=== PATIENT | female | born 1945 | race Caucasian/White ===

== ENCOUNTER 2016-12-20 11:01 | Outpatient (CLI) | payer MEDICARE, OTHER | END 2016-12-20 11:02 | disposition home or self-care (01) | DX: E11.51 Type 2 diabetes mellitus with diabetic peripheral angiopathy without gangrene (principal); I48.0 Paroxysmal atrial fibrillation; I10 Essential (primary) hypertension ==

== ENCOUNTER 2017-01-05 14:46 | Outpatient (CLI) | payer MEDICARE, OTHER | END 2017-01-05 14:47 | disposition home or self-care (01) | DX: R42 Dizziness and giddiness (principal) ==

== ENCOUNTER 2017-01-19 14:56 | Outpatient (CLI) | payer MEDICARE, OTHER | END 2017-01-19 14:57 | disposition home or self-care (01) | DX: E04.1 Nontoxic single thyroid nodule (principal) ==

== ENCOUNTER 2017-06-20 17:00 | Outpatient (CLI) | payer MEDICARE, OTHER | END 2017-06-20 17:01 | disposition home or self-care (01) | LOC: LAB.R 17:00 | PROVIDERS: ATTEND Physician Assistant Medical | DX: Z20.9 Contact with and (suspected) exposure to unspecified communicable disease (principal) | CPT/HCPCS: 87640 ==

== ENCOUNTER 2017-06-23 09:19 | Outpatient (CLI) | payer MEDICARE, OTHER ==
[2017-06-23 13:07] LABS: CALCIUM 9.1 mg/dL (8.5-10.3)
[2017-06-23 13:40] LABS: HEMOGLOBIN A1C 0.92 g/dL
== END 2017-06-23 09:20 | disposition home or self-care (01) ==
LOC: LAB.WCP 09:19
PROVIDERS: ATTEND Physician Assistant Medical
DX: E11.9 Type 2 diabetes mellitus without complications (principal); Z20.9 Contact with and (suspected) exposure to unspecified communicable disease
CPT/HCPCS: 36415; 80048; 83036

== ENCOUNTER 2017-08-03 08:00 | Outpatient (CLI) | payer MEDICARE, OTHER ==
[2017-08-03 19:11] LABS: BASOPHILS % (AUTO) 0.7 %; HGB - HEMOGLOBIN 14.3 g/dL (12.0-16.0); LYMPHOCYTES % (AUTO) 43.3 %; MEAN CORPUSCULAR HGB CONC 32.5 g/dL (32.0-36.0); MEAN PLATELET VOLUME 8.9 fL (7.9-10.8); MONOCYTES # (AUTO) 0.6 10^3/uL (0.0-1.0); MONOCYTES % (AUTO) 12.2 %; NEUTROPHILS % (AUTO) 43.8 %; NUCLEATED RED BLOOD CELLS AUTO 0.1 /100WBC; RED BLOOD COUNT 5.49 10^6/uL (4.20-5.40); RED CELL DISTRIBUTION WIDTH 14.8 % (12.0-15.0); UNCORRECTED WHITE BLOOD COUNT 4.6 x10^3/uL; WHITE BLOOD COUNT 4.6 x10^3/uL (4.8-10.8)
[2017-08-03 19:39] LABS: ALBUMIN/GLOBULIN RATIO 1.5 (1.0-2.2); BILIRUBIN,TOTAL 0.7 mg/dL (0.2-1.0); BUN - BLOOD UREA NITROGEN 18 mg/dL (6-20); CALCIUM 9.1 mg/dL (8.5-10.3); CARBON DIOXIDE - CO2 26 mmol/L (21-32); CHLORIDE 106 mmol/L (101-111); CHOL/HDL RATIO 2.7 (<4.4); CHOLESTEROL 124 mg/dL; CREATININE 0.9 mg/dL (0.4-1.0); GFR - MDRD 62 (>89); GLUCOSE 155 mg/dL (70-100); HDL CHOLESTEROL 46 mg/dL; LDL/HDL RATIO 1.1 (<4.4); POTASSIUM 3.8 mmol/L (3.5-5.0); SODIUM 139 mmol/L (135-145); TOTAL PROTEIN 6.9 g/dL (6.7-8.2); TRIGLYCERIDES 131 mg/dL; VLDL CHOLESTEROL 26 mg/dL
[2017-08-03 19:47] LABS: THYROID STIMULATING HORMONE 0.08 uIU/mL (0.34-5.60)
== END 2017-08-03 08:01 | disposition home or self-care (01) ==
LOC: LAB.WCP 08:00
PROVIDERS: ATTEND Psychiatry & Neurology Psychiatry
DX: F33.1 Major depressive disorder, recurrent, moderate (principal); F43.23 Adjustment disorder with mixed anxiety and depressed mood; G47.00 Insomnia, unspecified
CPT/HCPCS: 36415; 80053; 80061; 84439; 84443; 85025

== ENCOUNTER 2017-09-26 10:20 | Outpatient (CLI) | payer MEDICARE, OTHER ==
[2017-09-26 20:18] LABS: HEMOGLOBIN A1C 0.96 g/dL
== END 2017-09-26 10:21 | disposition home or self-care (01) ==
LOC: LAB.WCP 10:20
PROVIDERS: ATTEND Physician Assistant Medical
DX: E11.9 Type 2 diabetes mellitus without complications (principal); E05.90 Thyrotoxicosis, unspecified without thyrotoxic crisis or storm
CPT/HCPCS: 36415; 83036; 84443

== ENCOUNTER 2017-12-22 08:00 | Outpatient (CLI) | payer MEDICARE, OTHER ==
[2017-12-22 19:07] LABS: BASOPHILS % (AUTO) 0.5 %; HGB - HEMOGLOBIN 14.1 g/dL (12.0-16.0); LYMPHOCYTES # (AUTO) 2.2 10^3/uL (1.5-3.5); LYMPHOCYTES % (AUTO) 39.2 %; MEAN CORPUSCULAR HGB CONC 32.6 g/dL (32.0-36.0); MEAN CORPUSCULAR VOLUME 79.8 fL (81.0-99.0); MEAN PLATELET VOLUME 8.6 fL (7.9-10.8); MONOCYTES # (AUTO) 0.6 10^3/uL (0.0-1.0); MONOCYTES % (AUTO) 10.4 %; NEUTROPHILS # (AUTO) 2.8 10^3/uL (1.5-6.6); NEUTROPHILS % (AUTO) 49.9 %; PLT - PLATELET COUNT 217 10^3/uL (130-450); RED BLOOD COUNT 5.42 10^6/uL (4.20-5.40); RED CELL DISTRIBUTION WIDTH 14.1 % (12.0-15.0); WHITE BLOOD COUNT 5.6 x10^3/uL (4.8-10.8)
[2017-12-22 19:18] LABS: ALBUMIN/GLOBULIN RATIO 1.3 (1.0-2.2); BILIRUBIN,TOTAL 0.5 mg/dL (0.2-1.0); CALCIUM 9.2 mg/dL (8.5-10.3)
[2017-12-22 19:23] LABS: HB2 TOTAL 15.6 g/dL; HEMOGLOBIN A1C 0.9 g/dL; HEMOGLOBIN A1C % 7.4 % (4.6-6.2)
== END 2017-12-22 08:01 | disposition home or self-care (01) ==
LOC: LAB.WCP 08:00
PROVIDERS: ATTEND Physician Assistant Medical
DX: E11.51 Type 2 diabetes mellitus with diabetic peripheral angiopathy without gangrene (principal); R42 Dizziness and giddiness
CPT/HCPCS: 36415; 80053; 83036; 85025

== ENCOUNTER 2018-01-02 10:18 | Outpatient (CLI) | payer MEDICARE, OTHER ==
--- NOTE | 2018-01-04 09:56 | Mammography Report ---
BILATERAL SCREENING MAMMOGRAM: 01/02/2018 COMPARISON: Mammogram 03/01/2016. INDICATION: Screening. TECHNIQUE: Bilateral CC and MLO breast views. FINDINGS: There are scattered fibroglandular densities. No dominant mass, architectural distortion, or concerning cluster of microcalcifications is seen. IMPRESSION: 1. BI-RADS CATEGORY 1. NEGATIVE. 2. RECOMMEND ANNUAL SCREENING MAMMOGRAM. STANDARD QUALIFYING STATEMENTS: 1. This examination was reviewed with the aid of Computer-Aided Detection (CAD) . 2. A negative or benign imaging report should not delay biopsy if clinically suspicious findings are present. Consider surgical consultation if warranted. More than 5 % of cancers are not identified by imaging. 3. Dense breasts may obscure an underlying neoplasm. TD: 01/04/2018 09:56 SOFIA
== END 2018-01-02 10:19 | disposition home or self-care (01) ==
LOC: DI.N 10:18
PROVIDERS: ATTEND Physician Assistant Medical
DX: Z12.31 Encounter for screening mammogram for malignant neoplasm of breast (principal)
CPT/HCPCS: 77067

== ENCOUNTER 2018-04-03 08:00 | Outpatient (CLI) | payer MEDICARE, OTHER ==
[2018-04-03 14:09] LABS: HB2 TOTAL 15.1 g/dL; HEMOGLOBIN A1C 0.77 g/dL; HEMOGLOBIN A1C % 6.8 % (4.6-6.2)
[2018-04-03 14:14] LABS: ALBUMIN 3.7 g/dL (3.2-5.5); ALBUMIN/GLOBULIN RATIO 1.3 (1.0-2.2); ALKALINE PHOSPHATASE 59 IU/L (42-121); ALT ALANINE AMINOTRANSFERASE 21 IU/L (10-60); AST ASPARTATE AMINOTRANSFERASE 19 IU/L (10-42); BILIRUBIN,TOTAL 0.6 mg/dL (0.2-1.0); BUN - BLOOD UREA NITROGEN 14 mg/dL (6-20); CALCIUM 8.9 mg/dL (8.5-10.3); CARBON DIOXIDE - CO2 27 mmol/L (21-32); CHLORIDE 105 mmol/L (101-111); CHOLESTEROL 103 mg/dL; CREATININE 0.8 mg/dL (0.4-1.0); GFR - MDRD 71 (>89); GLUCOSE 149 mg/dL (70-100); HDL CHOLESTEROL 51 mg/dL; LDL CHOLESTEROL,CALCULATED 34 mg/dL; LDL/HDL RATIO 0.7 (<4.4); SODIUM 141 mmol/L (135-145); TOTAL PROTEIN 6.6 g/dL (6.7-8.2); VLDL CHOLESTEROL 18 mg/dL
== END 2018-04-03 08:01 | disposition home or self-care (01) ==
LOC: LAB.WCP 08:00
PROVIDERS: ATTEND Physician Assistant Medical
DX: E11.9 Type 2 diabetes mellitus without complications (principal)
CPT/HCPCS: 36415; 80053; 80061; 83036; 83721

== ENCOUNTER 2018-07-17 09:37 | Outpatient (CLI) | payer MEDICARE, OTHER ==
[2018-07-17 14:30] LABS: CALCIUM 9.4 mg/dL (8.5-10.3); CREATININE 0.5 mg/dL (0.4-1.0)
[2018-07-17 14:40] LABS: HB2 TOTAL 15.9 g/dL; HEMOGLOBIN A1C 0.93 g/dL; HEMOGLOBIN A1C % 7.5 % (4.6-6.2)
== END 2018-07-17 09:38 ==
LOC: LAB.WCP 09:37
PROVIDERS: ATTEND Physician Assistant Medical
DX: E11.51 Type 2 diabetes mellitus with diabetic peripheral angiopathy without gangrene (principal)
CPT/HCPCS: 36415; 80048; 83036

== ENCOUNTER 2018-09-23 23:02 | Emergency (ER) | payer MEDICARE, OTHER ==
[2018-09-24] MEDS ORDERED: DEXAMETHASONE 10 MG/ML VIAL PO STA (01:13)
--- NOTE | 2018-09-24 01:15 | ED Physician Documentation ---
History of Present Illness - Stated complaint Stated Complaint: THROAT PX - Chief complaint Chief Complaint: Heent - History obtained from History obtained from: Patient, Family - History of Present Illness Timing: How many days ago (4) - Additonal information Additional information: 72 y/o female who has had a thyroid biopsy done about 3 weeks ago has developed pain and a sensation of something rubbing when she swallows. She is not short of breath and she does not feel that her airway is compromised. She is able to swallow just has a feeling of something protruding into her throat. 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 She had the biopsy done at [facility] and she has seen Dr. Quiñonez for this problem. She has not been otherwise ill and her diabetes has been under good control. Review of Systems Constitutional: denies: Fever, Chills, Myalgias Eyes: denies: Decreased vision Ears: denies: Ear pain Nose: denies: Rhinorrhea / runny nose, Congestion Throat: reports: Sore throat Cardiac: denies: Chest pain / pressure, Palpitations Respiratory: denies: Dyspnea, Cough GI: denies: Abdominal Pain, Nausea, Vomiting : denies: Dysuria, Frequency PD PAST MEDICAL HISTORY - Past Medical History Past Medical History: No Cardiovascular: Hypertension, High cholesterol, Coronary artery disease, Angina, Atrial fibrillation Respiratory: Sleep apnea, CPAP use Endocrine/Autoimmune: Type 2 diabetes GI: None SUPERVISOR INSTRUMENT MECHANICS: None : None Psych: None Musculoskeletal: Chronic back pain - Past Surgical History Past Surgical History: Yes General: Cholecystectomy /SUPERVISOR INSTRUMENT MECHANICS: Tubal ligation, Hysterectomy, Other - Present Medications Home Medications: Ambulatory Orders Medication Instructions Recorded Confirmed Amlodipine Besylate 10 mg PO DAILY 03/23/13 07/28/16 Aripiprazole [Abilify] 10 mg PO QPM 03/23/13 07/28/16 Aspirin Chewable [St Simon 1 tab DAILY 03/23/13 07/28/16 Aspirin] Carvedilol [Coreg] 25 mg PO BID 03/23/13 07/28/16 Citalopram Hydrobromide [Celexa] 60 mg PO DAILY 03/23/13 07/28/16 Esomeprazole Magnesium [Nexium] 40 mg PO DAILY 03/23/13 07/28/16 Furosemide [Lasix] 40 mg PO DAILY 03/23/13 07/28/16 Isosorbide Mononitrate [Imdur] 60 mg PO DAILY 03/23/13 07/28/16 Losartan [Cozaar] 50 mg PO BID 03/23/13 07/28/16 Metformin HCl [Glucophage Xr] 500 mg PO BID 03/23/13 07/28/16 Nitroglycerin [Nitrostat] 0.4 mg SL PRN 03/23/13 04/02/14 Simvastatin [Zocor] 40 mg PO QPM 03/23/13 07/28/16 Dextran/Hypromellose/Glycerin 1 drop EACHEYE DAILY 07/27/16 07/28/16 [Genteal Tears 0.1%-0.2%-0.3%] Melatonin/Herbal Complex #184 3 mg PO DAILY 07/27/16 07/27/16 [Melatonin + l-Theanine Softgel] Empagliflozin [Jardiance] 09/23/18 Lisdexamfetamine Dimesylate 40 mg PO 09/23/18 [Vyvanse] Omeprazole 20 mg PO 09/23/18 - Allergies Allergies/Adverse Reactions: Allergies Allergy/AdvReac Type Severity Reaction Status Date / Time captopril [From Capoten] Allergy Severe Edema Verified 09/23/18 23:08 pentazocine HCl * Allergy Severe Hallucinati Verified 09/23/18 23:08 [From Talwin Compound] ons iodine Allergy Rash Verified 09/23/18 23:08 Sulfa (Sulfonamide Allergy Unknown Verified 09/23/18 23:08 Antibiotics) ibuprofen AdvReac Intermediate Emesis Verified 09/23/18 23:08 - Social History Does the pt smoke?: No Smoking Status: Never smoker Does the pt drink ETOH?: No Does the pt have substance abuse?: No - Immunizations Immunizations are current?: Yes - POLST Patient has POLST: No PD ED PE NORMAL - Vitals Vital signs reviewed: Yes (hypertensive ) - General General: Alert and oriented X 3, No acute distress, Well developed/nourished - HEENT HEENT: Atraumatic, PERRL, EOMI, Ears normal, Moist mucous membranes, Pharynx benign, Dentition benign - Neck Neck: Supple, no meningeal sign, No bony TTP, Other (I am not able to palpate a thyroid mass. The mass is readily visible on bedside ultrasound and appears as a hypervascular follicular mass about 2.6cm round. ) - Cardiac Cardiac: RRR, No murmur - Respiratory Respiratory: No respiratory distress, Clear bilaterally - Derm Derm: Normal color, Warm and dry, No rash - Extremities Extremities: No deformity, No edema - Neuro Neuro: Alert and oriented X 3, hydrometeorological technician 2-12 intact, No motor deficit, No sensory deficit, Normal speech Eye Opening: Spontaneous Motor: Obeys Commands Verbal: Oriented GCS Score: 15 - Psych Psych: Normal mood, Normal affect Results - Vitals Vitals: Vital Signs - 24 hr 09/23/18 09/24/18 23:03 01:33 Temperature 36.4 C L Heart Rate 79 67 Respiratory 18 18 Rate Blood Pressure 156/61 H 142/61 H O2 Saturation 97 95 Oxygen O2 Source Room air PD MEDICAL DECISION MAKING - ED course Complexity details: reviewed results, re-evaluated patient, considered differential, d/w patient, d/w family ED course: This 72-year-old female with a history of a thyroid mass has symptoms associated with this mass and I am unable to palpate the mass directly. It is readily seen on bedside ultrasound. It does not appear to be larger than the images we have from 2017 here at [facility]. I have asked the patient to follow-up with her ENT Dr. Quiñonez for more help with this specific problem. Today we have given her a dose of dexamethasone for symptomatic relief. I did discuss with the patient that this may interfere with her diabetes. Departure - Departure Disposition: 01 Home, Self Care Clinical Impression: Thyroid mass Condition: Stable Instructions: Thyroid Probs Tx, Thyroid Common Probs Follow-Up: Kym Figueroa PA-C [Primary Care Provider] - Mark Quiñonez MD [Physician No Access] - Discharge Date/Time: 09/24/18 01:33
[2018-09-24 01:33] VITALS: BP 142/61
== END 2018-09-24 01:33 | disposition home or self-care (01) ==
LOC: ED 23:02
DX: R22.9 Localized swelling, mass and lump, unspecified (principal); E07.9 Disorder of thyroid, unspecified; I10 Essential (primary) hypertension; E78.00 Pure hypercholesterolemia, unspecified; I25.10 Atherosclerotic heart disease of native coronary artery without angina pectoris; E11.9 Type 2 diabetes mellitus without complications; Z79.84 Long term (current) use of oral hypoglycemic drugs; Z79.82 Long term (current) use of aspirin
CPT/HCPCS: 99283

== ENCOUNTER 2018-10-19 08:00 | Outpatient (CLI) | payer MEDICARE, OTHER ==
[2018-10-19 19:25] LABS: BASOPHILS % (AUTO) 0.8 %; HGB - HEMOGLOBIN 14.4 g/dL (12.0-16.0); LYMPHOCYTES % (AUTO) 38.3 %; MEAN CORPUSCULAR HEMOGLOBIN 26.3 pg (27.0-31.0); MEAN CORPUSCULAR HGB CONC 32.2 g/dL (32.0-36.0); MEAN CORPUSCULAR VOLUME 81.6 fL (81.0-99.0); MEAN PLATELET VOLUME 8.8 fL (7.9-10.8); MONOCYTES # (AUTO) 0.6 10^3/uL (0.0-1.0); MONOCYTES % (AUTO) 11.1 %; NEUTROPHILS # (AUTO) 2.5 10^3/uL (1.5-6.6); NEUTROPHILS % (AUTO) 49.8 %; PLT - PLATELET COUNT 216 10^3/uL (130-450); RED BLOOD COUNT 5.48 10^6/uL (4.20-5.40); RED CELL DISTRIBUTION WIDTH 14.7 % (12.0-15.0); WHITE BLOOD COUNT 5.1 x10^3/uL (4.8-10.8)
[2018-10-19 19:31] LABS: HB2 TOTAL 15.3 g/dL; HEMOGLOBIN A1C 0.86 g/dL; HEMOGLOBIN A1C % 7.3 % (4.6-6.2)
[2018-10-19 19:34] LABS: ALBUMIN 3.8 g/dL (3.2-5.5); ALBUMIN/GLOBULIN RATIO 1.5 (1.0-2.2); ALKALINE PHOSPHATASE 66 IU/L (42-121); ALT ALANINE AMINOTRANSFERASE 19 IU/L (10-60); AST ASPARTATE AMINOTRANSFERASE 18 IU/L (10-42); BILIRUBIN,TOTAL 0.6 mg/dL (0.2-1.0); BUN - BLOOD UREA NITROGEN 18 mg/dL (6-20); CARBON DIOXIDE - CO2 27 mmol/L (21-32); CHLORIDE 107 mmol/L (101-111); CHOL/HDL RATIO 2.4 (<4.4); CHOLESTEROL 149 mg/dL; CREATININE 0.9 mg/dL (0.4-1.0); GFR - MDRD 62 (>89); GLUCOSE 154 mg/dL (70-100); HDL CHOLESTEROL 61 mg/dL; LDL CHOLESTEROL,CALCULATED 61 mg/dL; SODIUM 139 mmol/L (135-145); TOTAL PROTEIN 6.4 g/dL (6.7-8.2); VLDL CHOLESTEROL 27 mg/dL
== END 2018-10-19 23:59 | disposition home or self-care (01) ==
LOC: LAB.WCP 08:00
PROVIDERS: ATTEND Physician Assistant Medical
DX: E11.9 Type 2 diabetes mellitus without complications (principal); E05.90 Thyrotoxicosis, unspecified without thyrotoxic crisis or storm; K21.9 Gastro-esophageal reflux disease without esophagitis
CPT/HCPCS: 36415; 80053; 80061; 83036; 83721; 84443; 85025

== ENCOUNTER 2019-01-18 07:24 | Outpatient (CLI) | payer MEDICARE, OTHER ==
[2019-01-18 14:02] LABS: CALCIUM 9.1 mg/dL (8.5-10.3); CREATININE 0.9 mg/dL (0.4-1.0)
[2019-01-18 14:29] LABS: HB2 TOTAL 15.4 g/dL; HEMOGLOBIN A1C 0.92 g/dL; HEMOGLOBIN A1C % 7.6 % (4.6-6.2)
== END 2019-01-18 07:25 | disposition home or self-care (01) ==
LOC: LAB.WCP 07:24
PROVIDERS: ATTEND Physician Assistant Medical
DX: E11.51 Type 2 diabetes mellitus with diabetic peripheral angiopathy without gangrene (principal); E04.1 Nontoxic single thyroid nodule
CPT/HCPCS: 36415; 80048; 83036; 84443

== ENCOUNTER 2019-02-27 16:36 | Outpatient (CLI) | payer MEDICARE, OTHER ==
--- NOTE | 2019-02-28 09:21 | Mammography Report ---
Reason: SCREENING MAMMO Procedure Date: 02/27/2019 Accession Number: [id number] / [id number] Procedure: ARTURO - Screening Mammo w/Candido CPT Code: FULL RESULT: EXAM: Screening Mammo w/Candido DATE: 02/27/2019 5:12 PM CLINICAL HISTORY: Screening encounter. Personal history of breast cancer on the left side status post lumpectomy and radiation therapy in 1991. TECHNIQUE: (B) - Bilateral CC and MLO views were obtained. COMPARISON: 01/02/2018 through 11/09/2014. PARENCHYMAL PATTERN: (F) - The breast(s) demonstrate(s) diffuse fatty replacement. FINDINGS: Posttreatment changes in the left breast are stable. There are coarse typically benign calcifications. There are no suspicious masses, calcifications, or areas of distortion. IMPRESSION: Benign findings. BI-RADS category 2. RECOMMENDATION: (ANNUAL) - Recommend routine annual screening mammography. BI-RADS CATEGORY: (2) - Benign Findings. STANDARD QUALIFYING STATEMENTS: 1. This examination was not reviewed with the aid of Computer-Aided Detection (CAD). 2. A negative or benign imaging report should not preclude biopsy if clinically suspicious findings are present. 3. Dense breasts may obscure an underlying neoplasm. 4. This examination was reviewed with the aid of 3D breast imaging (tomosynthesis).
== END 2019-02-27 16:37 | disposition home or self-care (01) ==
LOC: DI 16:36
DX: Z12.31 Encounter for screening mammogram for malignant neoplasm of breast (principal); Z80.3 Family history of malignant neoplasm of breast
CPT/HCPCS: 77063; 77067

== ENCOUNTER 2019-04-20 07:54 | Outpatient (CLI) | payer MEDICARE, OTHER ==
[2019-04-20 13:13] LABS: BUN - BLOOD UREA NITROGEN 20 mg/dL (6-20); CALCIUM 9.4 mg/dL (8.5-10.3); CARBON DIOXIDE - CO2 27 mmol/L (21-32); CHLORIDE 107 mmol/L (101-111); CHOL/HDL RATIO 2.8 (<4.4); CHOLESTEROL 131 mg/dL; CREATININE 1.1 mg/dL (0.4-1.0); GFR - MDRD 49 (>89); GLUCOSE 179 mg/dL (70-100); HDL CHOLESTEROL 46 mg/dL; LDL CHOLESTEROL,CALCULATED 66 mg/dL; LDL/HDL RATIO 1.4 (<4.4); SODIUM 143 mmol/L (135-145); VLDL CHOLESTEROL 19 mg/dL
[2019-04-20 13:20] LABS: HB2 TOTAL 14.9 g/dL; HEMOGLOBIN A1C 0.88 g/dL; HEMOGLOBIN A1C % 7.6 % (4.6-6.2)
== END 2019-04-20 07:55 | disposition home or self-care (01) ==
LOC: LAB.WCP 07:54
PROVIDERS: ATTEND Physician Assistant Medical
DX: E11.51 Type 2 diabetes mellitus with diabetic peripheral angiopathy without gangrene (principal)
CPT/HCPCS: 36415; 80048; 80061; 83036; 83721

== ENCOUNTER 2019-07-09 10:30 | Outpatient (CLI) | payer MEDICARE, OTHER ==
[2019-07-09 20:21] LABS: CANDIDA GROUP DNA NEGATIVE (NEGATIVE); CANDIDA KRUSEI DNA NEGATIVE (NEGATIVE); TRICHOMONAS VAGINALIS DNA NEGATIVE (NEGATIVE)
== END 2019-07-09 23:59 ==
LOC: LAB.R 10:30
PROVIDERS: ATTEND Physician Assistant
DX: B37.3 Candidiasis of vulva and vagina (principal)
CPT/HCPCS: 87661; 87801

== ENCOUNTER 2019-08-10 14:03 | Outpatient (CLI) | payer MEDICARE, OTHER ==
[2019-08-10 19:03] LABS: CALCIUM 9.1 mg/dL (8.5-10.3)
[2019-08-10 19:05] LABS: HB2 TOTAL 14.6 g/dL; HEMOGLOBIN A1C 0.87 g/dL; HEMOGLOBIN A1C % 7.6 % (4.6-6.2)
== END 2019-08-10 23:59 | disposition home or self-care (01) ==
LOC: LAB.WCP 14:03
PROVIDERS: ATTEND Physician Assistant Medical
DX: E11.59 Type 2 diabetes mellitus with other circulatory complications (principal)
CPT/HCPCS: 36415; 80048; 83036

== ENCOUNTER 2019-08-13 08:00 | Outpatient (CLI) | payer MEDICARE, OTHER | END 2019-08-13 23:59 | disposition home or self-care (01) | LOC: LAB.R 08:00 | PROVIDERS: ATTEND Physician Assistant Medical | DX: E11.9 Type 2 diabetes mellitus without complications (principal); Z79.899 Other long term (current) drug therapy | CPT/HCPCS: 81002; 87086 ==

== ENCOUNTER 2019-10-24 10:32 | Emergency (ER) | payer MEDICARE, OTHER ==
[2019-10-24 10:47] VITALS: BP 150/59
--- NOTE | 2019-10-24 11:37 | ED Physician Documentation ---
PD HPI URI - Stated complaint Stated Complaint: cold sx - Chief complaint Chief Complaint: Heent - History obtained from History obtained from: Patient - History of Present Illness Timing - onset: How many days ago (3-4) Timing duration: Days (3-4) Timing details: Abrupt onset, Still present Associated symptoms: Chills, Nasal congestion, Dry cough, Dyspnea. No: Chest pain, NVD, Bilateral edema Contributing factors: No: Sick contact, Immunocompromised, COPD / asthma Similar symptoms before: Has not had sx before Review of Systems Constitutional: reports: Chills, Myalgias Nose: reports: Congestion Throat: denies: Sore throat Cardiac: denies: Chest pain / pressure Respiratory: reports: Dyspnea, Cough. denies: Wheezing GI: reports: Nausea. denies: Vomiting, Diarrhea Musculoskeletal: denies: Neck pain Neurologic: denies: Altered mental status, Headache PD PAST MEDICAL HISTORY - Past Medical History Cardiovascular: Hypertension, High cholesterol, Coronary artery disease, Angina, Atrial fibrillation Respiratory: Sleep apnea, CPAP use Endocrine/Autoimmune: Type 2 diabetes GI: None FASHION PATTERNMAKER: None : None Psych: None Musculoskeletal: Chronic back pain - Past Surgical History Past Surgical History: Yes General: Cholecystectomy /FASHION PATTERNMAKER: Tubal ligation, Hysterectomy, Other - Present Medications Home Medications: Ambulatory Orders Medication Instructions Recorded Confirmed Amlodipine Besylate 10 mg PO DAILY 03/23/13 07/28/16 Aripiprazole [Abilify] 10 mg PO QPM 03/23/13 07/28/16 Aspirin Chewable [St Simon 1 tab DAILY 03/23/13 07/28/16 Aspirin] Carvedilol [Coreg] 25 mg PO BID 03/23/13 07/28/16 Citalopram Hydrobromide [Celexa] 60 mg PO DAILY 03/23/13 07/28/16 Esomeprazole Magnesium [Nexium] 40 mg PO DAILY 03/23/13 07/28/16 Furosemide [Lasix] 40 mg PO DAILY 03/23/13 07/28/16 Isosorbide Mononitrate [Imdur] 60 mg PO DAILY 03/23/13 07/28/16 Losartan [Cozaar] 50 mg PO BID 03/23/13 07/28/16 Metformin HCl [Glucophage Xr] 500 mg PO BID 03/23/13 07/28/16 Nitroglycerin [Nitrostat] 0.4 mg SL PRN 03/23/13 04/02/14 Simvastatin [Zocor] 40 mg PO QPM 03/23/13 07/28/16 Dextran/Hypromellose/Glycerin 1 drop EACHEYE DAILY 07/27/16 07/28/16 [Genteal Tears 0.1%-0.2%-0.3%] Melatonin/Herbal Comb. No.184 3 mg PO DAILY 07/27/16 07/27/16 [Melatonin + l-Theanine Softgel] Empagliflozin [Jardiance] 09/23/18 Lisdexamfetamine Dimesylate 40 mg PO 09/23/18 [Vyvanse] Omeprazole 20 mg PO 09/23/18 dexAMETHasone [Decadron] 4 mg PO DAILY #5 tablet 10/24/19 - Allergies Allergies/Adverse Reactions: Allergies Allergy/AdvReac Type Severity Reaction Status Date / Time captopril [From Capoten] Allergy Severe Edema Verified 10/24/19 10:45 pentazocine HCl * Allergy Severe Hallucinati Verified 10/24/19 10:45 [From Talwin Compound] ons adhesive tape Allergy Unknown Verified 10/24/19 10:45 iodine Allergy Rash Verified 10/24/19 10:45 Sulfa (Sulfonamide Allergy Unknown Verified 10/24/19 10:45 Antibiotics) sulfamethoxazole Allergy Unknown Verified 10/24/19 10:45 [From Septra] trimethoprim [From Septra] Allergy Unknown Verified 10/24/19 10:45 ibuprofen AdvReac Intermediate Emesis Verified 10/24/19 10:45 - Social History Does the pt smoke?: No Smoking Status: Never smoker Does the pt drink ETOH?: No Does the pt have substance abuse?: No - Immunizations Immunizations are current?: Yes - POLST Patient has POLST: No PD ED PE NORMAL - Vitals Vital signs reviewed: Yes - General General: Alert and oriented X 3, No acute distress, Well developed/nourished - HEENT HEENT: Moist mucous membranes, Pharynx benign - Neck Neck: Supple, no meningeal sign, No adenopathy - Cardiac Cardiac: RRR, No murmur - Respiratory Respiratory: Clear bilaterally - Abdomen Abdomen: Soft, Non tender - Derm Derm: Normal color, Warm and dry - Extremities Extremities: No edema, No calf tenderness / cord - Neuro Neuro: Alert and oriented X 3, No motor deficit, Normal speech Results - Vitals Vitals: Vital Signs - 24 hr 10/24/19 10:45 Temperature 36.9 C Heart Rate 69 Respiratory 15 Rate Blood Pressure 150/59 H O2 Saturation 98 Oxygen O2 Source Room air - Rads (name of study) chest xray Radiology: Prelim report reviewed (no infiltrates), See rad report PD MEDICAL DECISION MAKING - ED course Complexity details: considered differential (chest is clear, sats good. ), d/w patient Departure - Departure Disposition: Home, Self Care Clinical Impression: Upper respiratory infection Qualifiers: URI type: unspecified URI Qualified Code(s): J06.9 - Acute upper respiratory infection, unspecified Condition: Stable Record reviewed to determine appropriate education?: Yes Instructions: ED Upper Resp Infec No Abx Tx Follow-Up: Kym Figueroa PA-C [Primary Care Provider] - Prescriptions: dexAMETHasone [Decadron] 4 mg PO DAILY #5 tablet Comments: No signs of pneumonia at this time. Use Decadron to help with inflammation of airways. Expect some cough to develop most likely. Discharge Date/Time: 10/24/19 12:30
[2019-10-24] MEDS ORDERED: DEXAMETHASONE 10 MG/ML VIAL PO STA (11:54)
[2019-10-24] MEDS ORDERED: CHERRY SYRUP 10 ML UDC PO ONE (11:54)
--- NOTE | 2019-10-24 11:54 | XRAY Report ---
Reason: cough Procedure Date: 10/24/2019 Accession Number: [id number] / [id number] Procedure: XR - Chest 2 View X-Ray CPT Code: 15338 Final Report FULL RESULT: EXAM: CHEST RADIOGRAPHY EXAM DATE: 10/24/2019 11:33 AM. CLINICAL HISTORY: Cough. COMPARISON: XR CHEST PA AND LAT 11/02/2012 9:37 PM. TECHNIQUE: 2 views. FINDINGS: Lungs/Pleura: No focal opacities evident. No pleural effusion. No pneumothorax. Normal volumes. Mediastinum: Stable cardiomediastinal silhouette. Other: Surgical clips in the left axilla. IMPRESSION: No evidence for acute cardiothoracic process. RADIA
== END 2019-10-24 12:30 | disposition home or self-care (01) ==
LOC: ED 10:32
DX: J06.9 Acute upper respiratory infection, unspecified (principal); I10 Essential (primary) hypertension; E11.9 Type 2 diabetes mellitus without complications; Z79.84 Long term (current) use of oral hypoglycemic drugs; Z79.82 Long term (current) use of aspirin
CPT/HCPCS: 71046; 99283; A9270

== ENCOUNTER 2019-11-08 08:00 | Outpatient (CLI) | payer MEDICARE, OTHER ==
[2019-11-08 12:37] LABS: HB2 TOTAL 13.6 g/dL; HEMOGLOBIN A1C 0.86 g/dL; HEMOGLOBIN A1C % 7.9 % (4.6-6.2)
[2019-11-08 12:45] LABS: ALBUMIN 3.5 g/dL (3.2-5.5); ALBUMIN/GLOBULIN RATIO 1.2 (1.0-2.2); ALKALINE PHOSPHATASE 59 IU/L (42-121); ALT ALANINE AMINOTRANSFERASE 22 IU/L (10-60); AST ASPARTATE AMINOTRANSFERASE 17 IU/L (10-42); BILIRUBIN,TOTAL 0.5 mg/dL (0.2-1.0); BUN - BLOOD UREA NITROGEN 16 mg/dL (6-20); CALCIUM 8.7 mg/dL (8.5-10.3); CARBON DIOXIDE - CO2 25 mmol/L (21-32); CHLORIDE 109 mmol/L (101-111); CHOL/HDL RATIO 2.5 (<4.4); CHOLESTEROL 117 mg/dL; CREATININE 0.9 mg/dL (0.4-1.0); GFR - MDRD 61 (>89); GLUCOSE 202 mg/dL (70-100); HDL CHOLESTEROL 46 mg/dL; LDL CHOLESTEROL,CALCULATED 52 mg/dL; LDL/HDL RATIO 1.1 (<4.4); SODIUM 141 mmol/L (135-145); TOTAL PROTEIN 6.4 g/dL (6.7-8.2); VLDL CHOLESTEROL 19 mg/dL
== END 2019-11-08 23:59 | disposition home or self-care (01) ==
LOC: LAB.WCP 08:00
PROVIDERS: ATTEND Physician Assistant Medical
DX: E11.9 Type 2 diabetes mellitus without complications (principal)
CPT/HCPCS: 36415; 80053; 80061; 83036; 83721

== ENCOUNTER 2019-11-23 09:47 | Outpatient (CLI) | payer MEDICARE, OTHER ==
[2019-11-23 12:53] LABS: HB2 TOTAL 13.5 g/dL; HEMOGLOBIN A1C 0.96 g/dL; HEMOGLOBIN A1C % 8.7 % (4.6-6.2)
[2019-11-23 12:58] LABS: ALBUMIN 3.5 g/dL (3.2-5.5); ALBUMIN/GLOBULIN RATIO 1.3 (1.0-2.2); ALKALINE PHOSPHATASE 64 IU/L (42-121); ALT ALANINE AMINOTRANSFERASE 24 IU/L (10-60); AST ASPARTATE AMINOTRANSFERASE 19 IU/L (10-42); BILIRUBIN,TOTAL 0.6 mg/dL (0.2-1.0); BUN - BLOOD UREA NITROGEN 14 mg/dL (6-20); CALCIUM 8.8 mg/dL (8.5-10.3); CARBON DIOXIDE - CO2 26 mmol/L (21-32); CHLORIDE 99 mmol/L (101-111); CHOL/HDL RATIO 3.1 (<4.4); CHOLESTEROL 129 mg/dL; CREATININE 0.9 mg/dL (0.4-1.0); GFR - MDRD 61 (>89); GLUCOSE 200 mg/dL (70-100); HDL CHOLESTEROL 41 mg/dL; LDL CHOLESTEROL,CALCULATED 48 mg/dL; LDL/HDL RATIO 1.2 (<4.4); SODIUM 136 mmol/L (135-145); TOTAL PROTEIN 6.3 g/dL (6.7-8.2); VLDL CHOLESTEROL 40 mg/dL
== END 2019-11-23 23:59 | disposition home or self-care (01) ==
LOC: LAB.WCP 09:47
PROVIDERS: ATTEND Physician Assistant Medical
DX: E11.9 Type 2 diabetes mellitus without complications (principal)
CPT/HCPCS: 36415; 80053; 80061; 83036; 83721

== ENCOUNTER 2019-12-06 10:37 | Outpatient (CLI) | payer MEDICARE, OTHER ==
[2019-12-06 18:43] LABS: BASOPHILS % (AUTO) 0.5 %; EOSINOPHILS # (AUTO) 0.1 10^3/uL (0.0-0.7); EOSINOPHILS % (AUTO) 1.6 %; HGB - HEMOGLOBIN 13.9 g/dL (12.0-16.0); LYMPHOCYTES # (AUTO) 1.7 10^3/uL (1.5-3.5); LYMPHOCYTES % (AUTO) 30.8 %; MEAN CORPUSCULAR HEMOGLOBIN 26.7 pg (27.0-31.0); MEAN CORPUSCULAR HGB CONC 31.7 g/dL (32.0-36.0); MEAN CORPUSCULAR VOLUME 84.1 fL (81.0-99.0); MONOCYTES # (AUTO) 0.6 10^3/uL (0.0-1.0); MONOCYTES % (AUTO) 11.3 %; NEUTROPHILS # (AUTO) 3.1 10^3/uL (1.5-6.6); NEUTROPHILS % (AUTO) 55.4 %; PLT - PLATELET COUNT 211 10^3/uL (130-450); RED BLOOD COUNT 5.21 10^6/uL (4.20-5.40); RED CELL DISTRIBUTION WIDTH 13.3 % (12.0-15.0); WHITE BLOOD COUNT 5.6 x10^3/uL (4.8-10.8)
== END 2019-12-06 23:59 | disposition home or self-care (01) ==
LOC: LAB.WCP 10:37
PROVIDERS: ATTEND Physician Assistant Medical
DX: I10 Essential (primary) hypertension (principal); R41.3 Other amnesia
CPT/HCPCS: 36415; 82607; 85025

== ENCOUNTER 2019-12-31 06:40 | Outpatient (CLI) | payer MEDICARE, OTHER ==
[2019-12-31 07:35] LABS: CALCIUM 9.1 mg/dL (8.5-10.3); CREATININE 0.9 mg/dL (0.4-1.0)
[2019-12-31] MEDS ORDERED: GADOBUTROL 15 MMOL/15 ML VIAL ONE (08:21)
[2019-12-31] MEDS ORDERED: GADOBUTROL 15 MMOL/15 ML VIAL IVP ONE (08:43)
--- NOTE | 2019-12-31 10:29 | MRI Report ---
Reason: MEMORY LOSS Procedure Date: 12/31/2019 Accession Number: [id number] / [id number] Procedure: MRI - Brain W/WO CPT Code: Final Report FULL RESULT: EXAM: MRI BRAIN WITHOUT AND WITH CONTRAST EXAM DATE: 12/31/2019 08:45 AM. CLINICAL HISTORY: Memory loss that has increased over the last 6 months. History of breast cancer COMPARISON: BRAIN 09/26/2007 9:56 AM. TECHNIQUE: Multiplanar, multisequence T1-weighted and fluid-sensitive MR sequences of the brain were performed before and after administration of intravenous contrast. Sequences optimized for routine evaluation. Other: None. IV Contrast: 11 cc Gadavist. FINDINGS: No abnormal restricted diffusion signal or abnormal magnetic susceptibility is present in the brain parenchyma. No cerebellar tonsillar ectopia is present. Age appropriate prominence of the ventricles and sulci is noted. No extra-axial fluid collections are present. There are a few punctate FLAIR hyperintensities in the cerebral hemisphere white matter which are stable and nonspecific. Commonly, these are seen secondary to small vessel ischemic change. There is an expected flow void in the major intracranial vessels in the skull base. No mass is present in either orbit or in either Meckel's cave. Expected enhancement is seen in the major dural venous sinuses. No enhancing mass is present in the brain parenchyma. Projecting inferior and medial to the cavernous ICA on the right is a 3-4 mm fullness of the flow void, image 8 series 601. Scattered paranasal sinus mucosal thickening is present. IMPRESSION: 1. FLAIR hyperintensities are seen in the cerebral hemisphere white matter bilaterally are stable. These are nonspecific and are commonly seen secondary to small vessel ischemic change. 2. No intracranial mass. No intracranial metastatic disease is identified 3. Ventricles are normal in size and configuration. 4. 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 MRA would be of value. RADIA
== END 2019-12-31 06:41 | disposition home or self-care (01) ==
LOC: DI 06:40
PROVIDERS: ATTEND Physician Assistant Medical
DX: R41.3 Other amnesia (principal); I10 Essential (primary) hypertension
CPT/HCPCS: 36415; 70553; 80048; A9585

== ENCOUNTER 2020-01-12 16:41 | Outpatient (CLI) | payer MEDICARE, OTHER ==
--- NOTE | 2020-01-12 18:25 | MRI Report ---
Reason: MEMORY LOSS, ABN MRI Procedure Date: 01/12/2020 Accession Number: [id number] / [id number] Procedure: MRI - Angio Brain W/O (MRA) CPT Code: Final Report FULL RESULT: EXAM MRA BRAIN EXAM DATE: 01/12/2020 05:27 PM. CLINICAL HISTORY: 74-year-old female. Possible aneurysm seen in the cavernous ICA on the right MEMORY LOSS, ABN MRI. COMPARISON: BRAIN W/WO 12/31/2019 7:33 AM. TECHNIQUE: Multiplanar, multisequence MRA sequences of the brain were performed. Other: None. Post-processing: Multiplanar 3D MIP reconstructions. IV Contrast: None. FINDINGS: RIGHT Internal Carotid (ICA): No aneurysm, stenosis or anomaly. Middle Cerebral (MCA): No aneurysm, stenosis or anomaly. Anterior Cerebral (MELISSA): No aneurysm, stenosis or anomaly. Posterior Cerebral (SENIOR QUALITY ASSURANCE ANALYST): No aneurysm, stenosis or anomaly. Posterior Communicating (P-COM): Not visualized, aplastic versus markedly hypoplastic Vertebral: No aneurysm, stenosis or anomaly in the visualized upper vertebral artery. LEFT Internal Carotid (ICA): No aneurysm, stenosis or anomaly. Middle Cerebral (MCA): No aneurysm, stenosis or anomaly. Anterior Cerebral (MELISSA): No aneurysm, stenosis or anomaly. Posterior Cerebral (SENIOR QUALITY ASSURANCE ANALYST): No aneurysm, stenosis or anomaly. Posterior Communicating (P-COM): No aneurysm, stenosis or anomaly. Vertebral: No aneurysm, stenosis or anomaly in the visualized upper vertebral artery. MIDLINE Anterior Communicating (A-COM): No aneurysm, stenosis or anomaly. Basilar Artery:No aneurysm, stenosis or anomaly. Other: None. IMPRESSION: 1. Unremarkable brain MRA. No stenoses or aneurysms. RADIA
== END 2020-01-12 16:42 | disposition home or self-care (01) ==
LOC: DI 16:41
PROVIDERS: ATTEND Physician Assistant Medical
DX: R41.3 Other amnesia (principal)
CPT/HCPCS: 70544

== ENCOUNTER 2020-01-26 14:54 | Outpatient (CLI) | payer MEDICARE, OTHER | END 2020-01-26 14:55 | disposition critical access hospital (66) | LOC: EMS 14:54 | PROVIDERS: ATTEND Surgery | DX: R05 Cough (principal); R50.9 Fever, unspecified; R11.10 Vomiting, unspecified; R41.0 Disorientation, unspecified | CPT/HCPCS: A0425; A0427 ==

== ENCOUNTER 2020-01-31 14:22 | Emergency (ER) | payer MEDICARE, OTHER ==
--- NOTE | 2020-01-31 15:39 | XRAY Report ---
Reason: chest pain Procedure Date: 01/31/2020 Accession Number: [id number] / [id number] Procedure: XR - Chest 1 View X-Ray CPT Code: 67086 Final Report FULL RESULT: EXAM: CHEST RADIOGRAPHY EXAM DATE: 01/31/2020 03:16 PM. CLINICAL HISTORY: Chest pain. Cough and shortness of breath x2 weeks. COMPARISON: CHEST 1 VIEW 01/26/2020 3:34 PM CHEST 2 VIEW 10/24/2019 11:27 AM. TECHNIQUE: 1 view. FINDINGS: Lungs/Pleura: The right hemidiaphragm is mildly elevated. Improved aeration of the right base with persistent patchy opacity in the medial base. New hazy opacity overlying the peripheral left hemithorax. No pleural effusion or pneumothorax. Mediastinum: Within exam limitations, the cardiomediastinal contour is normal. Atherosclerotic calcifications within the aortic arch. Other: Surgical clips in the left axilla. IMPRESSION: 1. Improving consolidation in the right base. 2. New hazy opacity overlying the peripheral left hemithorax, suspicious for new site of infection. This appearance could be seen with atypical/viral infection. RADIA
[2020-01-31 15:54] LABS: BASOPHILS % (AUTO) 0.4 %; HGB - HEMOGLOBIN 12.1 g/dL (12.0-16.0); LYMPHOCYTES # (AUTO) 1.8 10^3/uL (1.5-3.5); LYMPHOCYTES % (AUTO) 19.6 %; MEAN CORPUSCULAR HEMOGLOBIN 26.1 pg (27.0-31.0); MEAN CORPUSCULAR HGB CONC 32.6 g/dL (32.0-36.0); MEAN CORPUSCULAR VOLUME 80.1 fL (81.0-99.0); MEAN PLATELET VOLUME 9.8 fL (7.9-10.8); MONOCYTES # (AUTO) 1.2 10^3/uL (0.0-1.0); MONOCYTES % (AUTO) 12.9 %; NEUTROPHILS # (AUTO) 5.8 10^3/uL (1.5-6.6); NEUTROPHILS % (AUTO) 65.3 %; PLT - PLATELET COUNT 301 10^3/uL (130-450); RED BLOOD COUNT 4.63 10^6/uL (4.20-5.40); RED CELL DISTRIBUTION WIDTH 13.2 % (12.0-15.0); WHITE BLOOD COUNT 8.9 x10^3/uL (4.8-10.8)
[2020-01-31 15:57] LABS: INR 1.2 (0.8-1.2); PT - PROTHROMBIN TIME 13.2 secs (9.9-12.6)
[2020-01-31 16:13] LABS: ALBUMIN 3.4 g/dL (3.2-5.5); BILIRUBIN,TOTAL 0.8 mg/dL (0.2-1.0); CALCIUM 8.5 mg/dL (8.5-10.3); CREATININE 0.8 mg/dL (0.4-1.0); TOTAL PROTEIN 6.8 g/dL (6.7-8.2)
--- NOTE | 2020-01-31 16:22 | ED Physician Documentation ---
History of Present Illness - Stated complaint Stated Complaint: C- SOA/COUGH - Chief complaint Chief Complaint: Resp - Additonal information Additional information: Patient comes emergency department for chief complaint of feeling worse at home. Patient was recently admitted to the hospital for pneumonia and was discharged a couple of days ago. She states that she did not really feel much better throughout her course in the hospital, although discharge note states that the patient was much more able to ambulate and appeared to be improved since her admission. Patient states that when she got home, she realized thatIt was very hard to get around because she was very short of breath. She states her has been having to assist her in everything. She states that when she called her doctor, her doctor told her to come right back to the emergency department and that she should be admitted to the hospital again. Medics reported that when they picked the patient up, her oxygen saturation was 87% on room air. The patient states that if she is sitting still in bed she does not feel so bad, but when she gets up to move around is when she feels the worst. She denies fevers. Her cough is better she states. Patient was started on antibiotics in the hospital and has been continuing her course as an outpatient. Patient is a diabetic. No underlying lung problems. She is not a smoker. No other complaints at this time. Patient did test negative for covid while admitted. Review of Systems Ten Systems: 10 systems reviewed and negative Constitutional: reports: Fatigue Eyes: reports: Reviewed and negative Ears: reports: Reviewed and negative Nose: reports: Reviewed and negative Throat: reports: Reviewed and negative Cardiac: reports: Reviewed and negative Respiratory: reports: Dyspnea, Cough (Improving) GI: reports: Reviewed and negative : reports: Reviewed and negative Skin: reports: Reviewed and negative Musculoskeletal: reports: Reviewed and negative Neurologic: reports: Reviewed and negative Psychiatric: reports: Reviewed and negative Endocrine: reports: Reviewed and negative Immunocompromised: reports: Reviewed and negative PD PAST MEDICAL HISTORY - Past Medical History Past Medical History: Yes Cardiovascular: Hypertension, High cholesterol, Coronary artery disease, Angina, Atrial fibrillation Respiratory: Pneumonia, Sleep apnea, CPAP use Neuro: None, Other Endocrine/Autoimmune: Type 2 diabetes GI: None, GERD ETL ARCHITECT: None, Breast cancer : None HEENT: None Psych: None, Depression Musculoskeletal: None, Chronic back pain, Other Derm: None - Past Surgical History Past Surgical History: Yes General: Cholecystectomy /ETL ARCHITECT: Dilation and currettage, Tubal ligation, Other - Present Medications Home Medications: Ambulatory Orders Medication Instructions Recorded Confirmed Amlodipine Besylate 10 mg PO DAILY 03/23/13 01/26/20 Aripiprazole [Abilify] 5 mg PO QPM 03/23/13 01/26/20 Aspirin Chewable [[facility] Simon 1 tab ORAL DAILY 03/23/13 01/26/20 Aspirin] Carvedilol [Coreg] 25 mg PO BID 03/23/13 01/26/20 Citalopram Hydrobromide [Celexa] 40 mg PO DAILY 03/23/13 01/27/20 Furosemide [Lasix] 40 mg PO DAILY 03/23/13 01/26/20 Isosorbide Mononitrate [Imdur] 60 mg PO DAILY 03/23/13 01/26/20 Losartan [Cozaar] 50 mg PO BID 03/23/13 01/26/20 Metformin HCl [Glucophage Xr] 500 mg PO BID 03/23/13 01/26/20 Nitroglycerin [Nitrostat] 0.4 mg SL Q5MIN PRN 03/23/13 01/26/20 Simvastatin [Zocor] 40 mg PO QPM 03/23/13 01/26/20 Dextran/Hypromellose/Glycerin 1 drop EACHEYE DAILY 07/27/16 01/26/20 [Genteal Tears 0.1%-0.2%-0.3%] Melatonin/Herbal Comb. No.184 3 mg PO DAILY 07/27/16 01/26/20 [Melatonin + l-Theanine Softgel] Lisdexamfetamine Dimesylate 40 mg PO DAILY 09/23/18 01/26/20 [Vyvanse] Omeprazole 20 mg PO DAILY 09/23/18 01/26/20 Cholecalciferol (Vitamin D3) 2,000 unit PO DAILY 01/26/20 01/26/20 [Vitamin D3] Glimepiride 2 mg PO DAILY 01/26/20 01/26/20 SITagliptin [Januvia] 100 mg PO DAILY 01/26/20 01/26/20 Buspirone HCl 5 mg PO TID 01/27/20 01/27/20 Azithromycin 250 mg PO DAILY 4 Days #4 tablet 01/29/20 Cefpodoxime Proxetil [Vantin] 200 mg PO Q12H 4 Days #8 tablet 01/29/20 - Allergies Allergies/Adverse Reactions: Allergies Allergy/AdvReac Type Severity Reaction Status Date / Time captopril [From Capoten] Allergy Severe Edema Verified 01/26/20 16:41 pentazocine HCl * Allergy Severe Hallucinati Verified 01/26/20 16:41 [From Talwin Compound] ons adhesive tape Allergy Unknown Verified 01/26/20 16:41 atenolol Allergy Unknown Verified 01/26/20 16:41 iodine Allergy Rash Verified 01/26/20 16:41 pentazocine Allergy Unknown Verified 01/26/20 16:41 Sulfa (Sulfonamide Allergy Unknown Verified 01/26/20 16:41 Antibiotics) sulfamethoxazole Allergy Unknown Verified 01/26/20 16:41 [From Septra] trimethoprim [From Septra] Allergy Unknown Verified 01/26/20 16:41 ibuprofen AdvReac Intermediate Emesis Verified 01/26/20 16:41 metformin AdvReac Nausea Verified 01/26/20 16:41 - Social History Does the pt smoke?: No Smoking Status: Never smoker Does the pt drink ETOH?: No Does the pt have substance abuse?: No - Immunizations Immunizations are current?: Yes - POLST Patient has POLST: No POLST Status: Full Code PD ED PE NORMAL - Vitals Vital signs reviewed: Yes - General General: Alert and oriented X 3, No acute distress, Well developed/nourished - HEENT HEENT: Atraumatic, PERRL, EOMI, Moist mucous membranes - Neck Neck: Supple, no meningeal sign - Cardiac Cardiac: RRR, No murmur, Strong equal pulses - Respiratory Respiratory: No respiratory distress (Patient is able to carry on a conversation with full sentences strung together without difficulty.), Other (Rales, right lower lung field; Left lung clear) - Abdomen Abdomen: Soft, Non tender, Non distended - Derm Derm: Normal color, Warm and dry, No rash - Extremities Extremities: No deformity, No edema, No calf tenderness / cord - Neuro Neuro: Alert and oriented X 3, risk compliance manager 2-12 intact, No motor deficit, No sensory deficit, Normal speech - Psych Psych: Normal mood, Normal affect Results - Vitals Vitals: Vital Signs - 24 hr 0401/31/20 01/31/20 14:27 14:45 16:27 Temperature 36.8 C Heart Rate 66 76 74 Respiratory 16 22 20 Rate Blood Pressure 140/51 H 153/65 H 155/76 H O2 Saturation 92 94 91 L 01/31/20 01/31/20 17:19 17:49 Temperature Heart Rate 88 74 Respiratory 18 Rate Blood Pressure 153/67 H O2 Saturation 93 Oxygen O2 Source Room air - Labs Labs: Laboratory Tests 01/31/20 01/31/20 01/31/20 14:40 14:40 14:40 WBC Cancelled RBC Cancelled Hgb Cancelled Hct Cancelled MCV Cancelled MCH Cancelled MCHC Cancelled RDW Cancelled Plt Count Cancelled MPV Cancelled Neut # (Auto) Cancelled Lymph # (Auto) Cancelled [place] # (Auto) Cancelled Eos # (Auto) Cancelled Baso # (Auto) Cancelled Absolute Nucleated RBC Cancelled Nucleated RBC % Cancelled Manual Slide Review Cancelled WBC Morphology Cancelled Platelet Estimate Cancelled Platelet Morphology Cancelled RBC Morph Micro Appear Cancelled PT INR Sodium Cancelled Potassium Cancelled Chloride Cancelled Carbon Dioxide Cancelled Anion Gap Cancelled BUN Cancelled Creatinine Cancelled Estimated GFR (MDRD) Cancelled Glucose Cancelled Lactic Acid Calcium Cancelled Total Bilirubin Cancelled AST Cancelled ALT Cancelled Alkaline Phosphatase Cancelled Troponin I High Sens Cancelled Total Protein Cancelled Albumin Cancelled Globulin Cancelled Albumin/Globulin Ratio Cancelled Lipase Cancelled Urine Color Urine Clarity Urine pH Ur Specific [place] Urine Protein Urine Glucose (UA) Urine Ketones Urine Occult Blood Urine Nitrite Urine Bilirubin Urine Urobilinogen Ur Leukocyte Esterase Ur Microscopic Review Urine Culture Comments Influenza A (Rapid) Influenza B (Rapid) Slides for Path Review Cancelled 01/31/20 01/31/20 01/31/20 14:40 14:40 15:44 WBC RBC Hgb Hct MCV MCH MCHC RDW Plt Count MPV Neut # (Auto) Lymph # (Auto) [place] # (Auto) Eos # (Auto) Baso # (Auto) Absolute Nucleated RBC Nucleated RBC % Manual Slide Review WBC Morphology Platelet Estimate Platelet Morphology RBC Morph Micro Appear PT 13.2 H INR 1.2 Sodium Potassium Chloride Carbon Dioxide Anion Gap BUN Creatinine Estimated GFR (MDRD) Glucose Lactic Acid Cancelled Calcium Total Bilirubin AST ALT Alkaline Phosphatase Troponin I High Sens Total Protein Albumin Globulin Albumin/Globulin Ratio Lipase Urine Color Cancelled Urine Clarity Cancelled Urine pH Cancelled Ur Specific [place] Cancelled Urine Protein Cancelled Urine Glucose (UA) Cancelled Urine Ketones Cancelled Urine Occult Blood Cancelled Urine Nitrite Cancelled Urine Bilirubin Cancelled Urine Urobilinogen Cancelled Ur Leukocyte Esterase Cancelled Ur Microscopic Review Cancelled Urine Culture Comments Cancelled Influenza A (Rapid) Influenza B (Rapid) Slides for Path Review 01/31/20 01/31/20 01/31/20 15:44 15:44 15:44 WBC 8.9 RBC 4.63 Hgb 12.1 Hct 37.1 MCV 80.1 L MCH 26.1 L MCHC 32.6 RDW 13.2 Plt Count 301 MPV 9.8 Neut # (Auto) 5.8 Lymph # (Auto) 1.8 [place] # (Auto) 1.2 H Eos # (Auto) 0.0 Baso # (Auto) 0.0 Absolute Nucleated RBC 0.00 Nucleated RBC % 0.0 Manual Slide Review WBC Morphology Platelet Estimate Platelet Morphology RBC Morph Micro Appear PT INR Sodium 138 Potassium 3.5 Chloride 104 Carbon Dioxide 24 Anion Gap 10.0 BUN 9 Creatinine 0.8 Estimated GFR (MDRD) 70 L Glucose 123 H Lactic Acid Calcium 8.5 Total Bilirubin 0.8 AST 27 ALT 38 Alkaline Phosphatase 81 Troponin I High Sens 5.0 Total Protein 6.8 Albumin 3.4 Globulin 3.4 Albumin/Globulin Ratio 1.0 Lipase 29 Urine Color Urine Clarity Urine pH Ur Specific [place] Urine Protein Urine Glucose (UA) Urine Ketones Urine Occult Blood Urine Nitrite Urine Bilirubin Urine Urobilinogen Ur Leukocyte Esterase Ur Microscopic Review Urine Culture Comments Influenza A (Rapid) Influenza B (Rapid) Slides for Path Review 01/31/20 01/31/20 15:44 16:15 WBC RBC Hgb Hct MCV MCH MCHC RDW Plt Count MPV Neut # (Auto) Lymph # (Auto) [place] # (Auto) Eos # (Auto) Baso # (Auto) Absolute Nucleated RBC Nucleated RBC % Manual Slide Review WBC Morphology Platelet Estimate Platelet Morphology RBC Morph Micro Appear PT INR Sodium Potassium Chloride Carbon Dioxide Anion Gap BUN Creatinine Estimated GFR (MDRD) Glucose Lactic Acid 1.0 Calcium Total Bilirubin AST ALT Alkaline Phosphatase Troponin I High Sens Total Protein Albumin Globulin Albumin/Globulin Ratio Lipase Urine Color Urine Clarity Urine pH Ur Specific [place] Urine Protein Urine Glucose (UA) Urine Ketones Urine Occult Blood Urine Nitrite Urine Bilirubin Urine Urobilinogen Ur Leukocyte Esterase Ur Microscopic Review Urine Culture Comments Influenza A (Rapid) Negative Influenza B (Rapid) Negative Slides for Path Review - Rads (name of study) Chest x-ray Radiology: Final report received, EMP read indepedently, See rad report (Final radiologist impression: Improving consolidation in the right base; new hazy opacity overlying the peripheral left hemithorax, suspicious for new site of infection. This appearance could be seen with atypical/viral infection) PD MEDICAL DECISION MAKING - ED course Complexity details: reviewed old records, reviewed results, re-evaluated patient, considered differential, d/w patient ED course: The patient was worked up with chest x-ray, labs, repeat Covid testing, and influenza. She actually appeared fairly well in the emergency department, but had been noted to have a room air oxygen saturation of 88% on arrival with good waveform. The patient was noted when talking to come up to the 92 to 94% pulse ox range, though when she was just relaxed breathing without talking, her sats would drop back to the upper 80s. The patient's work-up revealed a small new left lower lobe infiltrate and a diminishing right lower lobe infiltrate. I spoke with the patient regarding home care versus in the hospital, and did point out to her that she is already on the appropriate antibiotics and that she does run the risk of exposure to Covid and other illnesses if she comes back in the hospital. Nonetheless, if she is really struggling at home, then I am more than willing to admit her to the hospital as she does still have some degree of hypoxia. The patient was open to either way, and I did ask Dr. Rodriguez, who had seen patient while she was admitted, to come and see the patient in emergency department. He did and after some discussion with the patient and examination, it was decided that the patient preferred to go home, but with supplemental oxygen. This was set up by respiratory therapist and Dr. Rodriguez. The patient understands that if she at all begins to worsen, or she develops fever she should come right back to the emergency department. Patient is agreeable to this plan Departure - Departure Disposition: 01 Home, Self Care Clinical Impression: Hypoxemia Pneumonia Qualifiers: Pneumonia type: due to unspecified organism Laterality: left Lung location: lower lobe of lung Qualified Code(s): J18.9 - Pneumonia, unspecified organism Condition: Fair Instructions: ED Pneumonia Adult Comments: Your chest x-ray shows a small area of possible new pneumonia on the left side; however, the area on the right side has improved. Your white blood cell count is normal. At this point in time, you have opted, as per your discussion with the hospitalist, to continue treatment at home with supplemental oxygen. The respiratory therapist has set this up for you. If you begin to feel at all worse, please do not hesitate to return to the emergency department. Please continue your antibiotics that you were discharged with until the course is com plete. Discharge Date/Time: 01/31/20 18:08
--- NOTE | 2020-01-31 17:10 | CONSULTATION NOTE ---
Referring Provider Name of Referring Provider:: Dr Lorraine Varela Consult Date: 01/31/20 Chief Complaint - Chief Complaint Chief Complaint: Shortness of Breath with Exertion History of Present Illness - History of Present Illness HPI Comment/Other: Patient is a 74-year-old Female who was discharged from this institution 2 days ago after being admitted for acute respiratory failure with hypoxia. She was initially admitted with a presumptive diagnosis of viral pneumonia versus community-acquired pneumonia. She tested negative for the novel coronavirus 2019 infection, she was placed on empiric antibiotics for possible community- acquired pneumonia and by second day of hospital stay she was saturating well on room air, ambulating the room without assistance, and felt safe to be dis charged. Reportedly she discussed with her PCP for a phone follow-up today and she reported how she was feeling short of breath with exertion going to the bathroom and her PCP became concerned and referred her back to the emergency room for possible readmission. In the ER, she was evaluated and found to have relatively normal vital signs, no fever, oxygen saturations within 92 to 94% on room air while speaking, and per ED physician at rest she would occasionally dip down to 88% if not speaking. Chest x-ray was done which shows a improvement in the consolidation previously seen, however with a possible new opacity seen in the peripheral left lung not previously seen. Hospital medicine service was requested to consult for possible hospital admission versus discharge plan. History - Past Medical History Cardiovascular: reports: Hypertension, High cholesterol, Coronary artery disease, Angina, Atrial fibrillation Respiratory: reports: Pneumonia, Sleep apnea, CPAP use Neuro: reports: None, Other Endocrine/Autoimmune: reports: Type 2 diabetes GI: reports: None, GERD BRICKMASON HELPER: reports: None, Breast cancer : reports: None HEENT: reports: None Psych: reports: None, Depression Musculoskeletal: reports: None, Chronic back pain, Other Derm: reports: None MRSA Hx?: No - Past Surgical History General: reports: Cholecystectomy /BRICKMASON HELPER: reports: Dilation and currettage, Tubal ligation, Other - POLST Patient has POLST: No POLST Status: Full Code Meds/Allgy - Home Medications Home Medications: Ambulatory Orders Medication Instructions Recorded Confirmed Amlodipine Besylate 10 mg PO DAILY 03/23/13 01/26/20 Aripiprazole [Abilify] 5 mg PO QPM 03/23/13 01/26/20 Aspirin Chewable [[facility] Simon 1 tab ORAL DAILY 03/23/13 01/26/20 Aspirin] Carvedilol [Coreg] 25 mg PO BID 03/23/13 01/26/20 Citalopram Hydrobromide [Celexa] 40 mg PO DAILY 03/23/13 01/27/20 Furosemide [Lasix] 40 mg PO DAILY 03/23/13 01/26/20 Isosorbide Mononitrate [Imdur] 60 mg PO DAILY 03/23/13 01/26/20 Losartan [Cozaar] 50 mg PO BID 03/23/13 01/26/20 Metformin HCl [Glucophage Xr] 500 mg PO BID 03/23/13 01/26/20 Nitroglycerin [Nitrostat] 0.4 mg SL Q5MIN PRN 03/23/13 01/26/20 Simvastatin [Zocor] 40 mg PO QPM 03/23/13 01/26/20 Dextran/Hypromellose/Glycerin 1 drop EACHEYE DAILY 07/27/16 01/26/20 [Genteal Tears 0.1%-0.2%-0.3%] Melatonin/Herbal Comb. No.184 3 mg PO DAILY 07/27/16 01/26/20 [Melatonin + l-Theanine Softgel] Lisdexamfetamine Dimesylate 40 mg PO DAILY 09/23/18 01/26/20 [Vyvanse] Omeprazole 20 mg PO DAILY 09/23/18 01/26/20 Cholecalciferol (Vitamin D3) 2,000 unit PO DAILY 01/26/20 01/26/20 [Vitamin D3] Glimepiride 2 mg PO DAILY 01/26/20 01/26/20 SITagliptin [Januvia] 100 mg PO DAILY 01/26/20 01/26/20 Buspirone HCl 5 mg PO TID 01/27/20 01/27/20 Azithromycin 250 mg PO DAILY 4 Days #4 tablet 01/29/20 Cefpodoxime Proxetil [Vantin] 200 mg PO Q12H 4 Days #8 tablet 01/29/20 - Allergies Allergies/Adverse Reactions: Allergies Allergy/AdvReac Type Severity Reaction Status Date / Time captopril [From Capoten] Allergy Severe Edema Verified 01/26/20 16:41 pentazocine HCl * Allergy Severe Hallucinati Verified 01/26/20 16:41 [From Talwin Compound] ons adhesive tape Allergy Unknown Verified 01/26/20 16:41 atenolol Allergy Unknown Verified 01/26/20 16:41 iodine Allergy Rash Verified 01/26/20 16:41 pentazocine Allergy Unknown Verified 01/26/20 16:41 Sulfa (Sulfonamide Allergy Unknown Verified 01/26/20 16:41 Antibiotics) sulfamethoxazole Allergy Unknown Verified 01/26/20 16:41 [From Junra] trimethoprim [From ] Allergy Unknown Verified 01/26/20 16:41 ibuprofen AdvReac Intermediate Emesis Verified 01/26/20 16:41 metformin AdvReac Nausea Verified 01/26/20 16:41 Review of Systems - Constitutional Constitutional: reports: Fatigue. denies: Fever, Chills, Malaise, Weakness, Night sweats - Ears, Nose & Throat Ears, Nose & Throat: denies: Sore throat - Cardiovascular Cariovascular: denies: Chest pain - Respiratory Respiratory: reports: Cough (She reports cough has improved after taking a cough suppressant), SOB with exertion. denies: Wheezing, Orthopnea, SOB at rest - Gastrointestinal Gastrointestinal: denies: Abdominal pain, Abdominal distention - Neurological Neurological: reports: Headache Exam - Vital Signs Reviewed Vital Signs: Yes Vital Signs: Vital Signs x48h Temp Pulse Resp BP Pulse Ox 01/31/20 16:27 74 20 155/76 H 91 L 01/31/20 14:45 76 22 153/65 H 94 01/31/20 14:27 36.8 C 66 16 140/51 H 92 - Physical Exam General Appearance: positive: No acute distress, Alert ENT: positive: ENT inspection nml Neck: positive: Nml inspection Respiratory: positive: Chest non-tender, No respiratory distress, Other (Soft but audible coarse crackles at the base of the right lung, otherwise mildly diminished breath sounds bilaterally with no other abnormal breath sounds) Cardiovascular: positive: Regular rate & rhythm, No murmur, No gallop, Irregul michelle irregular Abdomen: positive: Non-tender, No organomegaly, Nml bowel sounds Skin: positive: Color nml Neurologic/Psychiatric: positive: Oriented x3, CN's nml (2-12), Motor nml Conclusion/Plan - Diagnosis Diagnosis: Shortness of breath with exertion - Plan Plan: Patient is likely experiencing continued sequelae of the original infection, however cannot rule out the new infection given the chest x-ray findings. In light of this, she has no fever, a normal white blood cell count, and symptomatically states that as long as she is not ambulating she does not feel short of breath and is otherwise feeling better. Her cough is also improved. Discussed with the patient and offered her the option of hospital admission versus getting her home oxygen, and she opted for the latter. Appreciate respiratory therapy's assistance and she has had a oxygen desaturation screening with the following results: Patient will be Prescribed oxygen with following needs and recommendations: Patient was not hypoxic at rest with room air sats of 93%. However, with exertion on room air, her O2 sats were 87%. With exertion on 2 L/min nasal cannula, her O2 sats improved to 93%. I am ordering home oxygen with room air at rest, and 2 L/min with exertion to help treat her pneumonia. - Lab Results Fish Bones: 01/31/20 15:44 01/31/20 15:44
[2020-01-31 17:50] VITALS: BP 153/67
== END 2020-01-31 18:08 | disposition home or self-care (01) ==
LOC: ED 14:22
DX: R09.02 Hypoxemia (principal); J18.9 Pneumonia, unspecified organism; I10 Essential (primary) hypertension; E11.9 Type 2 diabetes mellitus without complications; Z79.84 Long term (current) use of oral hypoglycemic drugs
CPT/HCPCS: 36415; 71045; 80053; 81001; 81003; 83605; 83690; 84484; 85025; 85610; 87040; 87086; 87275; 87276; 94761; 99284

== ENCOUNTER 2020-02-18 08:00 | Outpatient (CLI) | payer MEDICARE, OTHER ==
--- NOTE | 2020-02-18 21:41 | XRAY Report ---
Reason: PNEUMONIA Procedure Date: 02/18/2020 Accession Number: [id number] / [id number] Procedure: WCP - Chest 2 View X-Ray CPT Code: 89330 Final Report FULL RESULT: EXAM: CHEST RADIOGRAPHY EXAM DATE: 02/18/2020 11:18 AM. CLINICAL HISTORY: PNEUMONIA. COMPARISON: CHEST 1 VIEW 01/31/2020 2:48 PM. TECHNIQUE: 2 views. FINDINGS: Lungs/Pleura: Interval resolution of previously seen right paracardiac pneumonia.Unchanged elevation of right hemidiaphragm. No pleural effusion. No pneumothorax. Normal volumes. Mediastinum: Heart and mediastinal contours are unremarkable. Other: None. IMPRESSION: No acute cardiopulmonary process. RADIA
== END 2020-02-18 23:59 | disposition home or self-care (01) ==
LOC: DI.WCP 08:00
PROVIDERS: ATTEND Physician Assistant Medical
DX: Z87.01 Personal history of pneumonia (recurrent) (principal)
CPT/HCPCS: 71046

== ENCOUNTER 2020-02-25 08:00 | Outpatient (CLI) | payer MEDICARE, OTHER ==
[2020-02-25 15:02] LABS: CHOL/HDL RATIO 2.7 (<4.4); CHOLESTEROL 139 mg/dL; HDL CHOLESTEROL 52 mg/dL; LDL CHOLESTEROL,CALCULATED 62 mg/dL; LDL/HDL RATIO 1.2 (<4.4); VLDL CHOLESTEROL 25 mg/dL
[2020-02-25 15:58] LABS: FREE T4 (FREE THYROXINE) 0.88 ng/dL (0.58-1.64)
== END 2020-02-25 23:59 | disposition home or self-care (01) ==
LOC: LAB.WCP 08:00
PROVIDERS: ATTEND Physician Assistant Medical
DX: E78.5 Hyperlipidemia, unspecified (principal); E53.8 Deficiency of other specified B group vitamins; E04.1 Nontoxic single thyroid nodule; I25.10 Atherosclerotic heart disease of native coronary artery without angina pectoris
CPT/HCPCS: 36415; 80061; 82607; 83721; 84436; 84439; 84443

== ENCOUNTER 2020-03-24 11:04 | Outpatient (CLI) | payer MEDICARE, OTHER ==
[2020-03-24] MEDS ORDERED: IOVERSOL 320 100 ML VIAL IVP ONE ×2 (11:31→14:39)
--- NOTE | 2020-03-24 15:28 | CT Report ---
Reason: VIRAL PNEUMONIA Procedure Date: 03/24/2020 Accession Number: [id number] / [id number] Procedure: CT - CHEST W CPT Code: Final Report FULL RESULT: PROCEDURE: CHEST W INDICATIONS: VIRAL PNEUMONIA CONTRAST: IV CONTRAST: Optiray 320 ml: 80 PO CONTRAST: *NO PO CONTRAST TECHNIQUE: After the administration of intravenous contrast, 5 mm thick sections acquired from the pulmonary apices to the posterior costophrenic angles. 7 mm thick coronal MIP reformats were acquired. For radiation dose reduction, the following was used: automated exposure control, adjustment of mA and/or kV according to patient size. COMPARISON: Prior chest plain film imaging 01/26/2020, 02/18/2020.. FINDINGS: Image quality: Excellent. Lungs and pleura: No acute patchy air space opacities but there is a generalized alveolar prominence in this patient which could reflect cardiogenic pulmonary edema, inhalation injury, and is not typical of viral pneumonitis at this time. No pleural effusions or pneumothorax. Central and peripheral airways are patent and normal in caliber. Note is made of elevation of the right hemidiaphragm, seen on prior plain film imaging. Mediastinum: Heart size is normal. No pericardial effusion. No mediastinal or hilar adenopathy by size criteria. Thoracic aorta and central pulmonary arteries are normal in size. Esophagus is normal in caliber. No hiatal hernia. Bones and chest wall: No suspicious bony lesions. No vertebral body compression fractures. No axillary or supraclavicular adenopathy by size criteria. Thyroid gland the right thyroid lobe is asymmetrically enlarged when compared to that of the left, potentially a manifestation of a thyroid nodule in the retrosternal/retroclavicular area on the right. Abdomen: Visualized upper abdominal solid organs appear normal. Upper abdominal bowel loops are normal in caliber. IMPRESSION: Focal pneumonia is not found but there is a pattern of generalized mild alveolar edema in addition to chronic elevation of the right hemidiaphragm with mild atelectasis at the adjacent right lung base. Inhalation injury, extrinsic allergic alveolitis, and cardiogenic pulmonary edema are considered more likely than an unusual manifestation of viral pneumonitis as cause of this appearance. Note is made of asymmetric moderate enlargement of the right thyroid lobe inferiorly, which may reflect underlying right thyroid nodule. Depending on the clinical status follow-up by dedicated thyroid ultrasound may be warranted. Reviewed by: Allan Bowie MD on 03/24/2020 3:24 PM PDT Approved by: Allan Bowie MD on 03/24/2020 3:24 PM PDT Station ID: [id number]
== END 2020-03-24 11:05 | disposition home or self-care (01) ==
LOC: DI 11:04
PROVIDERS: ATTEND Physician Assistant Medical
DX: R91.8 Other nonspecific abnormal finding of lung field (principal); E11.9 Type 2 diabetes mellitus without complications
CPT/HCPCS: 36415; 71260; 80048; Q9967

== ENCOUNTER 2020-04-16 08:00 | Outpatient (CLI) | payer MEDICARE, OTHER ==
[2020-04-16 18:45] LABS: CALCIUM 9.1 mg/dL (8.5-10.3); CREATININE 0.9 mg/dL (0.4-1.0)
[2020-04-16 18:54] LABS: HB2 TOTAL 14.7 g/dL; HEMOGLOBIN A1C 0.73 g/dL; HEMOGLOBIN A1C % 6.7 % (4.6-6.2)
== END 2020-04-16 23:59 | disposition home or self-care (01) ==
LOC: LAB.WCP 08:00
PROVIDERS: ATTEND Physician Assistant Medical
DX: E11.59 Type 2 diabetes mellitus with other circulatory complications (principal); E04.1 Nontoxic single thyroid nodule
CPT/HCPCS: 36415; 80048; 83036; 84443

== ENCOUNTER 2020-04-19 09:07 | Outpatient (CLI) | payer MEDICARE, OTHER | END 2020-04-19 09:08 | disposition home or self-care (01) | LOC: RT 09:07 | PROVIDERS: ATTEND Physician Assistant Medical | DX: J12.9 Viral pneumonia, unspecified (principal) | CPT/HCPCS: 94010; 94729 ==

== ENCOUNTER 2020-05-07 09:47 | Outpatient (CLI) | payer MEDICARE, OTHER ==
--- NOTE | 2020-05-07 11:41 | XRAY Report ---
PROCEDURE: Cervical Spine 2 View INDICATIONS: CERVICAL RADICULOPATHY TECHNIQUE: 4 view(s) of the cervical spine were acquired. COMPARISON: None. FINDINGS: Bones: No fractures or dislocations to the T1 level. The lateral masses of C1 appear intact on the odontoid view. No suspicious bony lesions. Soft tissues: No prevertebral soft tissue swelling. IMPRESSION: Minimal degenerative changes along the mid and lower thirds of the cervical spine withou t evidence of trauma or subluxation. Reviewed by: Allan Bowie MD on 05/07/2020 11:40 AM PDT Approved by: Allan Bowie MD on 05/07/2020 11:40 AM PDT Station ID: [id number]
== END 2020-05-07 09:48 | disposition home or self-care (01) ==
LOC: DI 09:47
PROVIDERS: ATTEND Physician Assistant Medical
DX: M47.812 Spondylosis without myelopathy or radiculopathy, cervical region (principal)
CPT/HCPCS: 72040

== ENCOUNTER 2020-05-13 07:25 | Outpatient (CLI) | payer MEDICARE, OTHER | END 2020-05-13 07:26 | disposition home or self-care (01) | LOC: DI 07:25 | PROVIDERS: ATTEND Physician Assistant Medical | DX: I25.5 Ischemic cardiomyopathy (principal) | CPT/HCPCS: 93306 ==

== ENCOUNTER → 2020-07-15 | Outpatient (CLI) | payer MEDICARE, OTHER ==
[2020-07-15 13:36] LABS: ALBUMIN 3.9 g/dL (3.2-5.5); ALBUMIN/GLOBULIN RATIO 1.3 (1.0-2.2); ALKALINE PHOSPHATASE 73 IU/L (42-121); ALT ALANINE AMINOTRANSFERASE 21 IU/L (10-60); AST ASPARTATE AMINOTRANSFERASE 21 IU/L (10-42); BILIRUBIN,TOTAL 0.7 mg/dL (0.2-1.0); BUN - BLOOD UREA NITROGEN 20 mg/dL (6-20); CALCIUM 9.6 mg/dL (8.5-10.3); CARBON DIOXIDE - CO2 30 mmol/L (21-32); CHLORIDE 98 mmol/L (101-111); CHOL/HDL RATIO 2.6 (<4.4); CHOLESTEROL 123 mg/dL; CREATININE 0.9 mg/dL (0.4-1.0); GLUCOSE 147 mg/dL (70-100); HDL CHOLESTEROL 48 mg/dL; LDL CHOLESTEROL,CALCULATED 43 mg/dL; LDL/HDL RATIO 0.9 (<4.4); SODIUM 139 mmol/L (135-145); TOTAL PROTEIN 6.8 g/dL (6.7-8.2); VLDL CHOLESTEROL 32 mg/dL
[2020-07-15 14:55] LABS: HEMOGLOBIN A1c% 7.3 % (4.27-6.07)
== END ==
LOC: LAB.WCP 08:00
PROVIDERS: ATTEND Physician Assistant Medical
DX: E11.51 Type 2 diabetes mellitus with diabetic peripheral angiopathy without gangrene (principal)
CPT/HCPCS: 36415; 80053; 80061; 83036; 83721

== ENCOUNTER 2020-10-15 09:10 | Outpatient (CLI) | payer MEDICARE, OTHER ==
[2020-10-15 12:38] LABS: CALCIUM 9.3 mg/dL (8.5-10.3)
[2020-10-15 14:55] LABS: HEMOGLOBIN A1c% 6.9 % (4.27-6.07)
== END 2020-10-15 23:59 | disposition home or self-care (01) ==
LOC: LAB.WCP 09:10
PROVIDERS: ATTEND Physician Assistant Medical
DX: E11.9 Type 2 diabetes mellitus without complications (principal)
CPT/HCPCS: 36415; 80048; 83036

== ENCOUNTER 2021-02-11 09:37 | Outpatient (CLI) | payer MEDICARE, OTHER ==
[2021-02-11 12:24] LABS: ALBUMIN 4.3 g/dL (3.2-5.5); ALBUMIN/GLOBULIN RATIO 1.6 (1.0-2.2); ALKALINE PHOSPHATASE 71 IU/L (42-121); ALT ALANINE AMINOTRANSFERASE 22 IU/L (10-60); AST ASPARTATE AMINOTRANSFERASE 18 IU/L (10-42); BILIRUBIN,TOTAL 0.6 mg/dL (0.2-1.0); BUN - BLOOD UREA NITROGEN 22 mg/dL (6-20); CALCIUM 9.6 mg/dL (8.5-10.3); CARBON DIOXIDE - CO2 30 mmol/L (21-32); CHLORIDE 102 mmol/L (101-111); CHOL/HDL RATIO 2.5 (<4.4); CHOLESTEROL 119 mg/dL; CREATININE 0.9 mg/dL (0.4-1.0); GFR - MDRD 74 (>89); GLUCOSE 136 mg/dL (70-100); HDL CHOLESTEROL 48 mg/dL; LDL CHOLESTEROL,CALCULATED 49 mg/dL; POTASSIUM 4.1 mmol/L (3.5-5.0); SODIUM 142 mmol/L (135-145); TRIGLYCERIDES 112 mg/dL; VLDL CHOLESTEROL 22 mg/dL
[2021-02-11 12:27] LABS: ESTIMATED AVERAGE GLUCOSE 146 mg/dL (70-100); HEMOGLOBIN A1c% 6.7 % (4.27-6.07)
== END 2021-02-11 23:59 | disposition home or self-care (01) ==
LOC: LAB.WCP 09:37
PROVIDERS: ATTEND Physician Assistant Medical
DX: E11.9 Type 2 diabetes mellitus without complications (principal)
CPT/HCPCS: 36415; 80053; 80061; 83036; 83721

== ENCOUNTER 2021-03-20 17:12 | Outpatient (CLI) | payer MEDICARE, OTHER ==
--- NOTE | 2021-03-20 22:29 | Ultrasound Report ---
PROCEDURE: Head or Neck Soft Tissue INDICATIONS: THYROID NODULE TECHNIQUE: Real-time scanning was performed of the thyroid gland, with image documentation. COMPARISON: CT chest 03/24/2020. Thyroid ultrasound 01/19/2017. FINDINGS: Right: Thyroid lobe measures 5.7 x 3 x 2.3 cm, and is homogeneous in echotexture. Left: Thyroid lobe measures 4.6 x 1.9 x 1.6 cm, and is homogenous in echotexture. Isthmus: 6 mm thick. Nodule number: One Location: Right superior lateral Size: 4.1 x 2.4 x 2.1 cm. (Previously 4.8 x 2.6 x 2.5 cm) Composition: Spongiform Echogenicity: Isoechoic Shape: wider than tall. Margins: Smooth Echogenic foci: Punctate Total points: 4 ACR TI-RADS category: TR 4, moderately suspicious Nodule number: Two Location: Right inferior Size: 1.6 x 1.9 x 1.2 cm. (Previously 2.2 x 1.9 x 1.9 cm) Composition: Solid Echogenicity: Isoechoic Shape: wider than tall. Margins: Smooth Echogenic foci: None Total points: 2 ACR TI-RADS category: TR 2, not suspicious Nodule number: Three Location: Left mid laterally Size: 0.7 x 0.6 x 0.5 cm. (Previously 0.6 x 0.5 x 0.4 cm) Composition: Prominently solid Echogenicity: Isoechoic Shape: wider than tall. Margins: Smooth Echogenic foci: None Total points: 3 ACR TI-RADS category: TR 3, mildly suspicious Nodule number: Four Location: Left mid inferior Size: 1.1 x 1 x 0.6 cm. (Previously 1 x 0.8 x 0.4 cm) Composition: Cystic Echogenicity: Anechoic Shape: wider than tall. Margins: Smooth Echogenic foci: None Total points: 1 ACR TI-RADS category: TR 1, Not suspicious IMPRESSION: Right superior thyroid nodule measuring 4.1 cm, TR 4, moderately suspicious. This nodule is similar i n size to 2017. FNA should be considered if not previously performed. ACR TI-RADS definitions and recommendations: TI-RADS 1 (benign): 0 points. FNA not needed. TI-RADS 2 (not suspicious): 2 points. FNA not needed. TI-RADS 3 (mildly suspicious): 3 points. ? FNA if 2.5 cm or larger, follow up if 1.5 cm or larger (at 1, 3, and 5 years). TI-RADS 4 (moderately suspicious): 4-6 points. ? FNA if 1.5 cm or larger, follow up if 1 cm or larger (at 1, 2, 3, and 5 years). TI-RADS 5 (highly suspicious): 7 points or more. ? FNA if 1 cm or larger, follow up if 0.5 cm or larger (every year for 5 years). Reviewed by: Mando Weiss MD on 03/20/2021 10:27 PM PDT Approved by: Mando Weiss MD on 03/20/2021 10:27 PM PDT Station ID: [id number]
== END 2021-03-20 17:13 | disposition home or self-care (01) ==
LOC: DI 17:12
PROVIDERS: ATTEND Physician Assistant Medical
DX: E04.2 Nontoxic multinodular goiter (principal)

== ENCOUNTER 2021-04-16 05:48 | Emergency (ER) | payer MEDICARE, OTHER ==
[2021-04-16 05:59] VITALS: BP 142/56
[2021-04-16 06:18] LABS: BILIRUBIN,URINE NEGATIVE (NEGATIVE); GLUCOSE, URINE (UA) NEGATIVE (NEGATIVE); KETONES,URINE (UA) TRACE mg/dL (NEGATIVE); LEUKOCYTE ESTERASE, URINE SMALL (NEGATIVE); NITRITE,URINE NEGATIVE (NEGATIVE); OCCULT BLOOD,URINE LARGE (NEGATIVE); PH,URINE 6.5 PH (5.0-7.5); PROTEIN,URINE 100 mg/dL (NEGATIVE); UROBILINOGEN,URINE 2 E.U./dL (NORMAL)
[2021-04-16 06:19] LABS: CLARITY,URINE CLOUDY (CLEAR)
[2021-04-16 06:20] LABS: BACTERIA,URINE Few /HPF (None Seen); RBC,URINE TNTC /HPF (0-5); SQUAMOUS EPITHELIAL CELL,UR RARE Squamous (<= Few); WBC,URINE >25 /HPF (0-5)
--- NOTE | 2021-04-16 06:21 | ED Physician Documentation ---
PD HPI FEMALE - Stated complaint Stated Complaint: F - Chief complaint Chief Complaint: Abd Pain - History obtained from History obtained from: Patient - History of Present Illness Timing - onset: Yesterday Timing - duration: Days (1) Timing - details: Abrupt onset, Still present Associated symptoms: Dysuria, Urinary frequency, Hematuria. 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, Breast cancer : None HEENT: None Psych: None, Depression Musculoskeletal: None, Chronic back pain, Other Derm: None - Past Surgical History Past Surgical History: Yes General: Cholecystectomy /ROAD 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 INSPECTOR: Dilation and currettage, Tubal ligation, Other - Present Medications Home Medications: Ambulatory Orders Medication Instructions Recorded Confirmed Amlodipine Besylate 10 mg PO DAILY 03/23/13 04/16/21 Aripiprazole [Abilify] 5 mg PO QPM 03/23/13 04/16/21 Aspirin Chewable [[facility] Simon 1 tab ORAL DAILY 03/23/13 04/16/21 Aspirin] Carvedilol [Coreg] 25 mg PO BID 03/23/13 04/16/21 Citalopram Hydrobromide [Celexa] 40 mg PO DAILY 03/23/13 04/16/21 Isosorbide Mononitrate [Imdur] 60 mg PO DAILY 03/23/13 04/16/21 Losartan [Cozaar] 50 mg PO BID 03/23/13 04/16/21 Metformin HCl [Glucophage Xr] 500 mg PO BID 03/23/13 04/16/21 Nitroglycerin [Nitrostat] 0.4 mg SL Q5MIN PRN 03/23/13 04/16/21 Simvastatin [Zocor] 40 mg PO QPM 03/23/13 04/16/21 Dextran/Hypromellose/Glycerin 1 drop EACHEYE DAILY 07/27/16 04/16/21 [Genteal Tears 0.1%-0.2%-0.3%] Melatonin/Herbal Comb. No.184 3 mg PO QPM 07/27/16 04/16/21 [Melatonin + l-Theanine Softgel] Omeprazole 20 mg PO DAILY 09/23/18 04/16/21 Cholecalciferol (Vitamin D3) 2,000 unit PO DAILY 01/26/20 04/16/21 [Vitamin D3] Glimepiride 2 mg PO DAILY 01/26/20 04/16/21 SITagliptin [Januvia] 100 mg PO DAILY 01/26/20 04/16/21 Buspirone HCl 5 mg PO TID 01/27/20 04/16/21 Lisdexamfetamine Dimesylate 70 mg PO DAILY 04/16/21 04/16/21 [Vyvanse] Phenazopyridine HCl [Pyridium] 100 mg PO TID PRN #9 tablet 04/16/21 Torsemide 20 mg PO BID 04/16/21 04/16/21 cephALEXin [Keflex] 500 mg PO TID 6 Days #18 cap 04/16/21 traZODone [Desyrel] 50 mg PO QPM 04/16/21 04/16/21 - Allergies Allergies/Adverse Reactions: Allergies Allergy/AdvReac Type Severity Reaction Status Date / Time captopril [From Capoten] Allergy Severe Edema Verified 04/16/21 05:59 pentazocine HCl * Allergy Severe Hallucinati Verified 04/16/21 05:59 [From Talwin Compound] ons adhesive tape Allergy Unknown Verified 04/16/21 05:59 atenolol Allergy Unknown Verified 04/16/21 05:59 iodine Allergy Rash Verified 04/16/21 05:59 pentazocine Allergy Unknown Verified 04/16/21 05:59 Sulfa (Sulfonamide Allergy Unknown Verified 04/16/21 05:59 Antibiotics) sulfamethoxazole Allergy Unknown Verified 04/16/21 05:59 [From Junra] trimethoprim [From ] Allergy Unknown Verified 04/16/21 05:59 ibuprofen AdvReac Intermediate Emesis Verified 04/16/21 05:59 metformin AdvReac Nausea Verified 04/16/21 05:59 - Social History Does the pt smoke?: No Smoking Status: Never smoker Does the pt drink ETOH?: No Does the pt have substance abuse?: No - Immunizations Immunizations are current?: Yes - POLST Patient has POLST: No POLST Status: Full Code PD ED PE NORMAL - Vitals Vital signs reviewed: Yes - General General: Alert and oriented X 3, No acute distress, Well developed/nourished - Abdomen Abdomen: Soft, Non tender - Back Back: No CVA TTP - Derm Derm: Normal color, Warm and dry Results - Vitals Vitals: Vital Signs - 24 hr 04/16/21 05:50 Temperature 36.6 C Heart Rate 63 Respiratory 18 Rate Blood Pressure 142/56 H O2 Saturation 97 Oxygen O2 Source Room air - Labs Labs: Laboratory Tests 04/16/21 06:05 Urine Color RED/BLOODY Urine Clarity CLOUDY Urine pH 6.5 Ur Specific [place] 1.025 Urine Protein 100 H Urine Glucose (UA) NEGATIVE Urine Ketones TRACE Urine Occult Blood LARGE H Urine Nitrite NEGATIVE Urine Bilirubin NEGATIVE Urine Urobilinogen 2 H Ur Leukocyte Esterase SMALL H Urine RBC TNTC H Urine WBC >25 H Ur Squamous Epith Cells RARE Squamous Urine Bacteria Few Ur Microscopic Review INDICATED Urine Culture Comments INDICATED PD MEDICAL DECISION MAKING - ED course Complexity details: reviewed results, considered differential, d/w patient Departure - Departure Disposition: 01 Home, Self Care Clinical Impression: Dysuria UTI (urinary tract infection) Qualifiers: Urinary tract infection type: acute cystitis Hematuria presence: with hematuria Qualified Code(s): N30.01 - Acute cystitis with hematuria Condition: Stable Record reviewed to determine appropriate education?: Yes Instructions: ED UTI Cystitis Female Follow-Up: Kym Figueroa PA-C [Primary Care Provider] - Prescriptions: cephALEXin [Keflex] 500 mg PO TID 6 Days #18 cap Phenazopyridine HCl [Pyridium] 100 mg PO TID PRN #9 tablet PRN Reason: Pain Comments: Seems like bladder infection. Cephalexin antibiotic as directed. Pyridium to help with pain on urination. Stay well hydrated. Recheck if not improved over the next 2-3 days. Discharge Date/Time: 04/16/21 06:52
[2021-04-16] MEDS ORDERED: PHENAZOPYRIDINE 100 MG TABLET PO STA (06:41)
[2021-04-16] MEDS ORDERED: cephALEXin 250 MG CAPSULE PO STA (06:41)
== END 2021-04-16 06:52 | disposition home or self-care (01) ==
LOC: ED 05:48
DX: N30.01 Acute cystitis with hematuria (principal); I10 Essential (primary) hypertension; I48.91 Unspecified atrial fibrillation; E11.9 Type 2 diabetes mellitus without complications; Z79.4 Long term (current) use of insulin
CPT/HCPCS: 81001; 87086; 99283; A9270; 81003

== ENCOUNTER 2021-04-30 11:59 | Emergency (ER) | payer MEDICARE, OTHER ==
[2021-04-30 12:17] VITALS: BP 142/64
[2021-04-30 13:03] LABS: BILIRUBIN,URINE NEGATIVE (NEGATIVE); GLUCOSE, URINE (UA) NEGATIVE (NEGATIVE); KETONES,URINE (UA) NEGATIVE (NEGATIVE); LEUKOCYTE ESTERASE, URINE MODERATE (NEGATIVE); NITRITE,URINE NEGATIVE (NEGATIVE); OCCULT BLOOD,URINE LARGE (NEGATIVE); PROTEIN,URINE NEGATIVE (NEGATIVE); UROBILINOGEN,URINE 0.2 (NORMAL) E.U./dL (NORMAL)
[2021-04-30 13:14] LABS: CLARITY,URINE SL. CLOUDY (CLEAR)
[2021-04-30 13:18] LABS: BACTERIA,URINE Few /HPF (None Seen); RBC,URINE TNTC /HPF (0-5); SQUAMOUS EPITHELIAL CELL,UR NONE SEEN (<= Few); WBC CLUMPS,URINE PRESENT; WBC,URINE >25 /HPF (0-5)
[2021-04-30] MEDS ORDERED: PHENAZOPYRIDINE 100 MG TABLET PO STA (13:28)
[2021-04-30] MEDS ORDERED: cephALEXin 250 MG CAPSULE PO STA (13:28)
--- NOTE | 2021-04-30 13:30 | ED Physician Documentation ---
PD HPI FEMALE - Stated complaint Stated Complaint: FEMALE - Chief complaint Chief Complaint: UTI - History obtained from History obtained from: Patient - Additional information Additional information: 75-year-old woman presents with acute onset dysuria and frequency not associated with flank pain or fevers starting this morning. There is no frequent history of UTIs but of note she was seen here about a month ago for same symptoms. At that time her urinalysis and culture grew greater than 100,000 mixed kyle. She was put on Keflex and Pyridium at the time without side effects and with im provement in her symptoms. 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, Breast cancer : None HEENT: None Psych: None, Depression Musculoskeletal: None, Chronic back pain, Other Derm: None - Past Surgical History Past Surgical History: Yes General: Cholecystectomy /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: Dilation and currettage, Tubal ligation, Other - Present Medications Home Medications: Ambulatory Orders Medication Instructions Recorded Confirmed Amlodipine Besylate 10 mg PO DAILY 03/23/13 04/16/21 Aripiprazole [Abilify] 5 mg PO QPM 03/23/13 04/16/21 Aspirin Chewable [[facility] Simon 1 tab ORAL DAILY 03/23/13 04/16/21 Aspirin] Carvedilol [Coreg] 25 mg PO BID 03/23/13 04/16/21 Citalopram Hydrobromide [Celexa] 40 mg PO DAILY 03/23/13 04/16/21 Isosorbide Mononitrate [Imdur] 60 mg PO DAILY 03/23/13 04/16/21 Losartan [Cozaar] 50 mg PO BID 03/23/13 04/16/21 Metformin HCl [Glucophage Xr] 500 mg PO BID 03/23/13 04/16/21 Nitroglycerin [Nitrostat] 0.4 mg SL Q5MIN PRN 03/23/13 04/16/21 Simvastatin [Zocor] 40 mg PO QPM 03/23/13 04/16/21 Dextran/Hypromellose/Glycerin 1 drop EACHEYE DAILY 07/27/16 04/16/21 [Genteal Tears 0.1%-0.2%-0.3%] Melatonin/Herbal Comb. No.184 3 mg PO QPM 07/27/16 04/16/21 [Melatonin + l-Theanine Softgel] Omeprazole 20 mg PO DAILY 09/23/18 04/16/21 Cholecalciferol (Vitamin D3) 2,000 unit PO DAILY 01/26/20 04/16/21 [Vitamin D3] Glimepiride 2 mg PO DAILY 01/26/20 04/16/21 SITagliptin [Januvia] 100 mg PO DAILY 01/26/20 04/16/21 Buspirone HCl 5 mg PO TID 01/27/20 04/16/21 Lisdexamfetamine Dimesylate 70 mg PO DAILY 04/16/21 04/16/21 [Vyvanse] Phenazopyridine HCl [Pyridium] 100 mg PO TID PRN #9 tablet 04/16/21 Torsemide 20 mg PO BID 04/16/21 04/16/21 cephALEXin [Keflex] 500 mg PO TID 6 Days #18 cap 04/16/21 traZODone [Desyrel] 50 mg PO QPM 04/16/21 04/16/21 Phenazopyridine HCl [Pyridium] 200 mg PO TID PRN #6 tablet 04/30/21 cephALEXin [Keflex] 500 mg PO Q6H #20 cap 04/30/21 - Allergies Allergies/Adverse Reactions: Allergies Allergy/AdvReac Type Severity Reaction Status Date / Time captopril [From Capoten] Allergy Severe Edema Verified 04/30/21 12:17 pentazocine HCl * Allergy Severe Hallucinati Verified 04/30/21 12:17 [From Talwin Compound] ons adhesive tape Allergy Unknown Verified 04/30/21 12:17 atenolol Allergy Unknown Verified 04/30/21 12:17 iodine Allergy Rash Verified 04/30/21 12:17 pentazocine Allergy Unknown Verified 04/30/21 12:17 Sulfa (Sulfonamide Allergy Unknown Verified 04/30/21 12:17 Antibiotics) sulfamethoxazole Allergy Unknown Verified 04/30/21 12:17 [From Septra] trimethoprim [From Septra] Allergy Unknown Verified 04/30/21 12:17 ibuprofen AdvReac Intermediate Emesis Verified 04/30/21 12:17 metformin AdvReac Nausea Verified 04/30/21 12:17 - Social History Does the pt smoke?: No Smoking Status: Never smoker Does the pt drink ETOH?: No Does the pt have substance abuse?: No - Immunizations Immunizations are current?: Yes - POLST Patient has POLST: No POLST Status: Full Code PD ED PE NORMAL - Vitals Vital signs reviewed: Yes - General General: Alert and oriented X 3, No acute distress - Abdomen Abdomen: Soft, Non tender - Back Back: No CVA TTP - Neuro Neuro: Alert and oriented X 3, Normal speech Results - Vitals Vitals: Vital Signs - 24 hr 04/30/21 12:15 Temperature 36.3 C L Heart Rate 69 Respiratory 16 Rate Blood Pressure 142/64 H O2 Saturation 97 Oxygen O2 Source Room air - Labs Labs: Laboratory Tests 04/30/21 12:38 Urine Color YELLOW Urine Clarity SL. CLOUDY Urine pH 7.0 Ur Specific [place] 1.015 Urine Protein NEGATIVE Urine Glucose (UA) NEGATIVE Urine Ketones NEGATIVE Urine Occult Blood LARGE H Urine Nitrite NEGATIVE Urine Bilirubin NEGATIVE Urine Urobilinogen 0.2 (NORMAL) Ur Leukocyte Esterase MODERATE H Urine RBC TNTC H Urine WBC >25 H Urine WBC Clumps PRESENT Ur Squamous Epith Cells NONE SEEN Urine Bacteria Few Ur Microscopic Review INDICATED Urine Culture Comments INDICATED Departure - Departure Disposition: 01 Home, Self Care Clinical Impression: Cystitis Condition: Good Record reviewed to determine appropriate education?: Yes Instructions: ED UTI Cystitis Female Prescriptions: cephALEXin [Keflex] 500 mg PO Q6H #20 cap Phenazopyridine HCl [Pyridium] 200 mg PO TID PRN #6 tablet PRN Reason: dysuria Comments: We will culture your urine, the results should be done in 48-72 hours. If an antibiotic change is necessary we will call you. Return if worse in the meantime, especially if you develop increasing flank pain, fevers, or cannot keep down the medication.
== END 2021-04-30 13:47 | disposition home or self-care (01) ==
LOC: ED 11:59
DX: N30.90 Cystitis, unspecified without hematuria (principal); I10 Essential (primary) hypertension; E11.9 Type 2 diabetes mellitus without complications; Z79.84 Long term (current) use of oral hypoglycemic drugs; Z79.82 Long term (current) use of aspirin
CPT/HCPCS: 81001; 87086; 87181; 99283; A9270; 81003

== ENCOUNTER 2021-05-21 08:00 | Outpatient (CLI) | payer MEDICARE, OTHER ==
[2021-05-21 11:51] LABS: CALCIUM 9.6 mg/dL (8.5-10.3); POTASSIUM 3.9 mmol/L (3.5-5.0)
[2021-05-21 12:01] LABS: ESTIMATED AVERAGE GLUCOSE 154 mg/dL (70-100)
[2021-05-21 12:02] LABS: THYROID STIMULATING HORMONE 0.92 uIU/mL (0.34-5.60)
[2021-05-21 18:26] LABS: CREATININE,URINE 98.8 mg/dL; MICROALBUM/CREATININE RATIO,UR 6.1 ug/mg (<30.0); MICROALBUMIN,URINE 0.6 mg/dL (0-300.0)
== END 2021-05-21 23:59 | disposition home or self-care (01) ==
LOC: LAB.WCP 08:00
PROVIDERS: ATTEND Physician Assistant Medical
DX: E11.59 Type 2 diabetes mellitus with other circulatory complications (principal); E05.90 Thyrotoxicosis, unspecified without thyrotoxic crisis or storm
CPT/HCPCS: 36415; 80048; 82043; 82570; 83036; 84443

== ENCOUNTER 2021-06-03 09:27 | Outpatient (CLI) | payer MEDICARE, OTHER ==
--- NOTE | 2021-06-04 15:49 | Ultrasound Report ---
LIMITED ULTRASOUND OF LEFT BREAST AND AXILLA: 06/03/2021 CLINICAL: Palpable left breast lump. Comparison is made to exams dated: 06/03/2021 mammogram, 02/27/2019 mammogram, 01/02/2018 mammogram, 03/01 mammogram, 11/09/2014 mammogram, and 08/07/2013 mammogram - [facility]. Color flow and real-time ultrasound of the left breast 11 o'clock, and axilla regions were performed . Howe scale images of the real-time examination were reviewed. There is a 0.9 cm x 0.9 cm x 0.7 cm taller than wide irregular mass with an angular margin in the lef t breast at 11 o'clock anterior depth. This irregular mass is hypoechoic with posterior acoustic sha dowing. Color flow imaging demonstrates that there is increased vascularity. IMPRESSION: SUSPICIOUS OF MALIGNANCY The 0.9 cm x 0.9 cm x 0.7 cm taller than wide irregular mass in the left breast is at a high suspicio n for malignancy. An ultrasound guided biopsy is recommended. This exam was interpreted at Station ID: [id number]. Electronically Signed By: Kaleb Clinton M.D. jr/:06/03/2021 12:27:00 Ultrasound BI-RADS: 4c High suspicion of malignancy BI-RADS CATEGORY: (4c) - High Susp None [id number] Immediate follow-up LATERALITY: ()
--- NOTE | 2021-06-04 15:49 | Ultrasound Report ---
LIMITED ULTRASOUND OF RIGHT BREAST AND AXILLA: 06/03/2021 CLINICAL: Patient returns today to evaluate a focal asymmetry in the right breast. Comparison is made to exams dated: 06/03/2021 mammogram, 02/27/2019 mammogram, 01/02/2018 mammogram, 03/01 mammogram, 11/09/2014 mammogram, and 08/07/2013 mammogram - [facility]. Color flow and real-time ultrasound of the right breast 8 o'clock, and axilla regions were performed. Howe scale images of the real-time examination were reviewed. There is a 7.6 cm x 2 cm x 4.2 cm irregular mass with an angular margin in the right breast at 8 o'cl ock posterior depth. This irregular mass is hypoechoic with no posterior acoustic shadowing or enhan cement. IMPRESSION: SUSPICIOUS OF MALIGNANCY The 7.6 cm x 2 cm x 4.2 cm irregular mass in the right breast is at a high suspicion for malignancy. An ultrasound guided biopsy is recommended. This exam was interpreted at Station ID: [id number]. Electronically Signed By: Kaleb Clinton M.D., jr/evangelina:06/03/2021 12:27:14 Ultrasound BI-RADS: 4c High suspicion of malignancy BI-RADS CATEGORY: (4c) - High Susp None [id number] Immediate follow-up LATERALITY: ()
--- NOTE | 2021-06-04 15:49 | Mammography Report ---
BILATERAL DIGITAL DIAGNOSTIC MAMMOGRAM 3D/2D: 06/03/2021 CLINICAL: Palpable left breast lump. Comparison is made to exams dated: 02/27/2019 mammogram, 01/02/2018 mammogram, 03/01/2016 mammogram, 11/09 mammogram, 08/07/2013 mammogram, and 03/17/2012 mammogram - [facility]. There are scattered fibroglandular elements in both breasts. The new 0.7 cm irregular equal density mass with a spiculated and indistinct margin in the left breas t at 11 o'clock anterior depth is more conspicious with spot compression and is suspicious. New large right breast mass which is posterior depth, highly spiculated, and high density. IMPRESSION: INCOMPLETE: NEEDS ADDITIONAL IMAGING EVALUATION The new irregular high density mass in the right breast posterior depth superior region seen on the m ediolateral oblique view only is suspicious and an ultrasound is recommended. The left breast mass at 11:00 is also suspicious but indeterminate. Ultrasound is also recommended fo r the left breast. Both ultrasound examinations have been scheduled to immediately follow. This exam was interpreted at Station ID: [id number]. NOTE: For mammograms, a report in lay terms will be sent to the patient. Approximately 15% of breast malignancies will not be visualized mammographically. In the management of a palpable breast mass, a negative mammogram must not discourage biopsy of a clinically suspicious lesion. Electronically Signed By: Kaleb Clinton M.D. jr/:06/03/2021 12:22:59 ACR BI-RADS Category 0: Incomplete 3340F PARENCHYMAL PATTERN: (A) - The breast(s) demonstrate(s) scattered fibroglandular densities. BI-RADS CATEGORY: (0) - 0 Ultrasound [id number] Immediate follow-up LATERALITY: (B)
== END 2021-06-03 09:28 | disposition home or self-care (01) ==
LOC: DI 09:27
PROVIDERS: ATTEND Physician Assistant Medical
DX: R92.8 Other abnormal and inconclusive findings on diagnostic imaging of breast (principal); N63.22 Unspecified lump in the left breast, upper inner quadrant; N63.13 Unspecified lump in the right breast, lower outer quadrant

== ENCOUNTER 2021-06-11 12:38 | Outpatient (CLI) | payer MEDICARE, OTHER ==
[~2021-06-11 12:38] MED LIST: BUFFERED LIDOCAINE 10 ML SYRINGE ONE; LIDOCAINE MPF 1%-EPI 1:200000 30 ML VIAL ONE
[2021-06-11] MEDS ORDERED: LIDOCAINE MPF 1%-EPI 1:200000 30 ML VIAL SUBQ ONE (16:30)
[2021-06-11] MEDS ORDERED: BUFFERED LIDOCAINE 10 ML SYRINGE IU ONE (16:37)
--- NOTE | 2021-06-12 09:03 | Mammography Report ---
BILATERAL DIGITAL DIAGNOSTIC MAMMOGRAM 3D/2D: 06/11/2021 CLINICAL: Post right breast ultrasound biopsy, clip placment imaging. Post left breast ultrasound bio psy, clip placment imaging. Comparison is made to exams dated: 06/03/2021 ultrasound, 06/03/2021 mammogram, 02/27/2019 mammogram, 09/2018 mammogram, 03/01/2016 mammogram, and 11/09/2014 mammogram - [facility]. There are scattered fibroglandular elements in both breasts. There is an irregular high density mass with a spiculated margin in the right breast posterior depth superior region seen on the mediolateral oblique view only. A surgical clip is placed. There is a 0.7 cm irregular equal density mass with a spiculated and indistinct margin in the left br east at 11 o'clock anterior depth. A new surgical clip is placed. No other significant masses or calcifications are seen in either breast. IMPRESSION: INCOMPLETE: NEEDS ADDITIONAL IMAGING EVALUATION Surgical clips placed at sites of biopsies in both right and left breasts. This exam was interpreted at Station ID: [id number]. NOTE: For mammograms, a report in lay terms will be sent to the patient. Approximately 15% of breast malignancies will not be visualized mammographically. In the management of a palpable breast mass, a negative mammogram must not discourage biopsy of a clinically suspicious lesion. Electronically Signed By: Gal tubbs/:06/11/2021 15:05:32 ACR BI-RADS Category 0: Incomplete 3340F PARENCHYMAL PATTERN: (A) - The breast(s) demonstrate(s) scattered fibroglandular densities. BI-RADS CATEGORY: (0) - 0 Biopsy follow-up [id number] Immediate follow-up LATERALITY: (B)
--- NOTE | 2021-06-15 15:26 | Ultrasound Report ---
ULTRASOUND GUIDED BIOPSY RIGHT BREAST: 06/11/2021 CLINICAL: Right breast mass. PATIENT CONSENT: Risks (minor bleeding, infection, vasovagal reaction and repeat procedure), benefits and alternatives were explained to the patient and written informed consent was obtained. Correlation is made to exams dated: 06/03/2021 ultrasound, 06/03/2021 mammogram, 02/27/2019 mammogram, mammogram, 03/01/2016 mammogram, and 11/09/2014 mammogram - [facility]. An ultrasound guided biopsy using real-time ultrasound was performed for the 7.6 cm x 2 cm x 4.2 cm m ass located in the right breast at 8 o'clock posterior depth. The skin was prepped in the usual nguyen er. A biopsy needle was placed adjacent to the abnormality under ultrasound guidance. Once the need le was documented to be in the correct location, a specimen was obtained using an automated biopsy gu n. The specimen was sent to the laboratory for pathological analysis. IMPRESSION: ULTRASOUND GUIDED BIOPSY BENIGN Ultrasound guided biopsy of the 7.6 cm x 2 cm x 4.2 cm mass in the right breast posterior depth was p erformed. Pathology indicates benign fat necrosis (FN). Pathology results are concordant with imagi ng findings. Return to annual mammogram screening schedule is recommended. This exam was interpreted at Station ID: [id number]. Gal tubbs,acr/:06/15/2021 13:09:45 BI-RADS CATEGORY: () - Mammogram [id number] return to screening LATERALITY: (B)
--- NOTE | 2021-06-15 15:26 | Ultrasound Report ---
ULTRASOUND GUIDED BIOPSY LEFT BREAST: 06/11/2021 CLINICAL: Left breast mass. PATIENT CONSENT: Risks (minor bleeding, infection, vasovagal reaction and repeat procedure), benefits and alternatives were explained to the patient and written informed consent was obtained. Correlation is made to exams dated: 06/03/2021 ultrasound, 06/03/2021 mammogram, 02/27/2019 mammogram, mammogram, 03/01/2016 mammogram, and 11/09/2014 mammogram - [facility]. An ultrasound guided biopsy using real-time ultrasound was performed for the 0.9 cm x 0.9 cm x 0.7 cm mass located in the left breast at 11 o'clock anterior depth. The skin was prepped in the usual man ner. A biopsy needle was placed adjacent to the abnormality under ultrasound guidance. Once the nee dle was documented to be in the correct location, a specimen was obtained using an automated biopsy g un. The specimen was sent to the laboratory for pathological analysis. IMPRESSION: ULTRASOUND GUIDED BIOPSY BENIGN Ultrasound guided biopsy of the 0.9 cm x 0.9 cm x 0.7 cm mass in the left breast anterior depth was p erformed. Pathology indicates benign fat necrosis (FN). Pathology results are concordant with imagi findings. This exam was interpreted at Station ID: [id number]. Gal tubbs,acr/:06/15/2021 11:43:50 BI-RADS CATEGORY: () - Unspecified - other recall n/a LATERALITY: (B)
== END 2021-06-11 12:39 | disposition home or self-care (01) ==
LOC: DI 12:38
PROVIDERS: ATTEND Physician Assistant Medical
DX: N64.1 Fat necrosis of breast (principal)
CPT/HCPCS: 19083; 19084

== ENCOUNTER 2021-08-01 17:11 | Emergency (ER) | payer MEDICARE, OTHER ==
[2021-08-01 19:59] LABS: BASOPHILS % (AUTO) 0.6 %; EOSINOPHILS # (AUTO) 0.2 10^3/uL (0.0-0.7); EOSINOPHILS % (AUTO) 2.7 %; HCT - HEMATOCRIT 45.3 % (37.0-47.0); HGB - HEMOGLOBIN 14.6 g/dL (12.0-16.0); LYMPHOCYTES % (AUTO) 14.6 %; MEAN CORPUSCULAR HEMOGLOBIN 26.4 pg (27.0-31.0); MEAN CORPUSCULAR HGB CONC 32.2 g/dL (32.0-36.0); MEAN CORPUSCULAR VOLUME 82.1 fL (81.0-99.0); MEAN PLATELET VOLUME 9.7 fL (7.9-10.8); MONOCYTES # (AUTO) 0.8 10^3/uL (0.0-1.0); MONOCYTES % (AUTO) 12.5 %; NEUTROPHILS # (AUTO) 4.5 10^3/uL (1.5-6.6); NEUTROPHILS % (AUTO) 69.1 %; PLT - PLATELET COUNT 220 10^3/uL (130-450); RED BLOOD COUNT 5.52 10^6/uL (4.20-5.40); RED CELL DISTRIBUTION WIDTH 14.4 % (12.0-15.0); WHITE BLOOD COUNT 6.6 x10^3/uL (4.8-10.8)
[2021-08-01 20:00] LABS: VBG PCO2 55.3 mmHg (41-51); VBG PH 7.379 (7.31-7.41); VBG PO2 24.9 mmHg (25-47)
[2021-08-01 20:01] LABS: VBG BASE EXCESS 5.1 mmol/L (-2 - +2); VBG HCO3 31.9 mmol/L (23-28); VBG OXYGEN SATURATION 49.8 % (60-80); VBG TOTAL CO2 33.6 mmol/L (24-29)
[2021-08-01 20:18] LABS: ALBUMIN 4.2 g/dL (3.2-5.5); ALBUMIN/GLOBULIN RATIO 1.4 (1.0-2.2); ALKALINE PHOSPHATASE 73 IU/L (42-121); ALT ALANINE AMINOTRANSFERASE 23 IU/L (10-60); AST ASPARTATE AMINOTRANSFERASE 19 IU/L (10-42); BILIRUBIN,TOTAL 0.6 mg/dL (0.2-1.0); BUN - BLOOD UREA NITROGEN 19 mg/dL (6-20); CALCIUM 9.4 mg/dL (8.5-10.3); CARBON DIOXIDE - CO2 30 mmol/L (21-32); CHLORIDE 99 mmol/L (101-111); CREATININE 0.9 mg/dL (0.4-1.0); GFR - MDRD 74 (>89); GLUCOSE 143 mg/dL (70-100); LIPASE 36 U/L (22-51); POTASSIUM 3.9 mmol/L (3.5-5.0); SODIUM 138 mmol/L (135-145); TOTAL PROTEIN 7.3 g/dL (6.7-8.2)
[2021-08-01 20:23] LABS: KETONES, SERUM (ACETEST) NEGATIVE (NEGATIVE)
--- NOTE | 2021-08-01 20:45 | ED Physician Documentation ---
History of Present Illness - Stated complaint Stated Complaint: HIGH BLOOD SUGAR - Chief complaint Chief Complaint: General - History obtained from History obtained from: Patient - History of Present Illness Timing: Today Pain level now: 1 (generalized SHANKS, neck pain) Improved by: no ameliorating factors Worsened by: no exacerbating factors - Additonal information Additional information: c/o hyperglycemia noted this morning with FSBS 319 at 11 AM, and 291 this evening shortly before coming to ED. She notes mild, generalized headache and neck pain. Denies dietary changes/indiscretions, denies missing doses of any of her usual prescribed medications. No signs or symptoms to suggest acute infection Review of Systems Constitutional: denies: Fever, Chills, Myalgias, Fatigue, Sweats Throat: denies: Sore throat Cardiac: reports: Reviewed and negative Respiratory: reports: Reviewed and negative GI: reports: Reviewed and negative : denies: Dysuria, Frequency Musculoskeletal: reports: Neck pain Neurologic: reports: Headache. 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, Breast cancer : None HEENT: None Psych: None, Depression Musculoskeletal: None, Chronic back pain, Other Derm: None - Past Surgical History Past Surgical History: Yes General: Cholecystectomy /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: Dilation and currettage, Tubal ligation, Other - Present Medications Home Medications: Ambulatory Orders Medication Instructions Recorded Confirmed Amlodipine Besylate 10 mg PO DAILY 03/23/13 04/16/21 Aripiprazole [Abilify] 5 mg PO QPM 03/23/13 04/16/21 Aspirin Chewable [St Simon 1 tab ORAL DAILY 03/23/13 04/16/21 Aspirin] Carvedilol [Coreg] 25 mg PO BID 03/23/13 04/16/21 Citalopram Hydrobromide [Celexa] 40 mg PO DAILY 03/23/13 04/16/21 Isosorbide Mononitrate [Imdur] 60 mg PO DAILY 03/23/13 04/16/21 Losartan [Cozaar] 50 mg PO BID 03/23/13 04/16/21 Metformin HCl [Glucophage Xr] 500 mg PO BID 03/23/13 04/16/21 Nitroglycerin [Nitrostat] 0.4 mg SL Q5MIN PRN 03/23/13 04/16/21 Simvastatin [Zocor] 40 mg PO QPM 03/23/13 04/16/21 Dextran/Hypromellose/Glycerin 1 drop EACHEYE DAILY 07/27/16 04/16/21 [Genteal Tears 0.1%-0.2%-0.3%] Melatonin/Herbal Comb. No.184 3 mg PO QPM 07/27/16 04/16/21 [Melatonin + l-Theanine Softgel] Omeprazole 20 mg PO DAILY 09/23/18 04/16/21 Cholecalciferol (Vitamin D3) 2,000 unit PO DAILY 01/26/20 04/16/21 [Vitamin D3] Glimepiride 2 mg PO DAILY 01/26/20 04/16/21 SITagliptin [Januvia] 100 mg PO DAILY 01/26/20 04/16/21 Buspirone HCl 5 mg PO TID 01/27/20 04/16/21 Lisdexamfetamine Dimesylate 70 mg PO DAILY 04/16/21 04/16/21 [Vyvanse] Phenazopyridine HCl [Pyridium] 100 mg PO TID PRN #9 tablet 04/16/21 Torsemide 20 mg PO BID 04/16/21 04/16/21 cephALEXin [Keflex] 500 mg PO TID 6 Days #18 cap 04/16/21 traZODone [Desyrel] 50 mg PO QPM 04/16/21 04/16/21 Phenazopyridine HCl [Pyridium] 200 mg PO TID PRN #6 tablet 04/30/21 cephALEXin [Keflex] 500 mg PO Q6H #20 cap 04/30/21 - Allergies Allergies/Adverse Reactions: Allergies Allergy/AdvReac Type Severity Reaction Status Date / Time captopril [From Capoten] Allergy Severe Edema Verified 08/01/21 17:16 pentazocine HCl * Allergy Severe Hallucinati Verified 08/01/21 17:16 [From Talwin Compound] ons adhesive tape Allergy Unknown Verified 08/01/21 17:16 atenolol Allergy Unknown Verified 08/01/21 17:16 iodine Allergy Rash Verified 08/01/21 17:16 pentazocine Allergy Unknown Verified 08/01/21 17:16 Sulfa (Sulfonamide Allergy Unknown Verified 08/01/21 17:16 Antibiotics) sulfamethoxazole Allergy Unknown Verified 08/01/21 17:16 [From ] trimethoprim [From ] Allergy Unknown Verified 08/01/21 17:16 ibuprofen AdvReac Intermediate Emesis Verified 08/01/21 17:16 metformin AdvReac Nausea Verified 04/30/21 12:17 - Social History Does the pt smoke?: No Smoking Status: Never smoker Does the pt drink ETOH?: No Does the pt have substance abuse?: No - Immunizations Immunizations are current?: Yes - POLST Patient has POLST: No POLST Status: Full Code PD ED PE NORMAL - Vitals Vital signs reviewed: Yes - General General: Alert and oriented X 3, No acute distress, Well developed/nourished - HEENT HEENT: Moist mucous membranes - Neck Neck: Supple, no meningeal sign - Cardiac Cardiac: RRR - Respiratory Respiratory: No respiratory distress, Clear bilaterally - Abdomen Abdomen: Soft, Non tender - Back Back: No CVA TTP - Derm Derm: Normal color, Warm and dry - Neuro Neuro: Alert and oriented X 3 Results - Vitals Vitals: Vital Signs - 24 hr 08/01/21 08/01/21 08/01/21 17:16 19:27 21:00 Temperature 36.5 C 36.1 C L 36.5 C Heart Rate 85 82 80 Respiratory 16 18 18 Rate Blood Pressure 170/73 H 163/78 H 150/70 H O2 Saturation 96 94 96 Oxygen O2 Source Room air - Labs Labs: Laboratory Tests 08/01/21 08/01/21 08/01/21 19:50 19:50 19:50 WBC 6.6 RBC 5.52 H Hgb 14.6 Hct 45.3 MCV 82.1 MCH 26.4 L MCHC 32.2 RDW 14.4 Plt Count 220 MPV 9.7 Neut # (Auto) 4.5 Lymph # (Auto) 1.0 L [place] # (Auto) 0.8 Eos # (Auto) 0.2 Baso # (Auto) 0.0 Absolute Nucleated RBC 0.00 Nucleated RBC % 0.0 VBG pH 7.379 VBG pCO2 55.3 H VBG pO2 24.9 L VBG HCO3 31.9 H VBG Total CO2 33.6 H VBG O2 Saturation 49.8 L VBG Base Excess 5.1 H Sodium 138 Potassium 3.9 Chloride 99 L Carbon Dioxide 30 Anion Gap 9.0 BUN 19 Creatinine 0.9 Estimated GFR (MDRD) 74 L Glucose 143 H Calcium 9.4 Total Bilirubin 0.6 AST 19 ALT 23 Alkaline Phosphatase 73 Total Protein 7.3 Albumin 4.2 Globulin 3.1 Albumin/Globulin Ratio 1.4 Lipase 36 Serum Ketones NEGATIVE PD MEDICAL DECISION MAKING - ED course Complexity details: reviewed results, re-evaluated patient, considered differential, d/w patient ED course: presents due to high blood sugars noted at home (morning and evening today), with mild neck pain and generalized headache. She is in NAD on my exam and blood tests are all reassuring with serum glucose of 143, ph on VBG of 7.38, negative serum ketones, and normal CBC. She does not appear dehydrated and thus no fluids given in ED. Results reviewed with patient and she is comfortable with d/c. She will continue to monitor her blood sugars and return if her blood sugars again become and remain elevated or if she develops other concerning signs/symptoms (such as fever, vomiting, worsening headache) Departure - Departure Disposition: 01 Home, Self Care Clinical Impression: Hyperglycemia Condition: Good Instructions: ED Hyperglycemia Diabetic Follow-Up: Kym Figueroa PA-C [Primary Care Provider] - Comments: Your tests tonight are quite reassuring, with blood sugar on our tests of 143. Your other blood tests are similarly reassuring and do not indicate any acute/emergent problems at this time. Discharge Date/Time: 08/01/21 21:03
[2021-08-01 21:03] VITALS: BP 150/70
== END 2021-08-01 21:03 | disposition home or self-care (01) ==
LOC: ED 17:11
DX: E11.65 Type 2 diabetes mellitus with hyperglycemia (principal); Z79.84 Long term (current) use of oral hypoglycemic drugs; R51.9 Headache, unspecified; M54.2 Cervicalgia; I10 Essential (primary) hypertension; Z79.82 Long term (current) use of aspirin
CPT/HCPCS: 36415; 80053; 82009; 82803; 83690; 85025; 99282; 99283

== ENCOUNTER 2021-08-21 08:00 | Outpatient (CLI) | payer MEDICARE, OTHER ==
[2021-08-21 12:53] LABS: ALBUMIN 4.1 g/dL (3.2-5.5); ALBUMIN/GLOBULIN RATIO 1.5 (1.0-2.2); ALKALINE PHOSPHATASE 64 IU/L (42-121); ALT ALANINE AMINOTRANSFERASE 21 IU/L (10-60); AST ASPARTATE AMINOTRANSFERASE 19 IU/L (10-42); BILIRUBIN,TOTAL 0.9 mg/dL (0.2-1.0); BUN - BLOOD UREA NITROGEN 27 mg/dL (6-20); CALCIUM 9.6 mg/dL (8.5-10.3); CARBON DIOXIDE - CO2 30 mmol/L (21-32); CHLORIDE 104 mmol/L (101-111); CHOL/HDL RATIO 2.7 (<4.4); CHOLESTEROL 140 mg/dL; GFR - MDRD 66 (>89); GLUCOSE 184 mg/dL (70-100); HDL CHOLESTEROL 52 mg/dL; LDL CHOLESTEROL,CALCULATED 61 mg/dL; LDL/HDL RATIO 1.2 (<4.4); POTASSIUM 3.8 mmol/L (3.5-5.0); SODIUM 143 mmol/L (135-145); TOTAL PROTEIN 6.8 g/dL (6.7-8.2); TRIGLYCERIDES 134 mg/dL; VLDL CHOLESTEROL 27 mg/dL
[2021-08-21 13:05] LABS: ESTIMATED AVERAGE GLUCOSE 171 mg/dL (70-100); HEMOGLOBIN A1c% 7.6 % (4.27-6.07)
== END 2021-08-21 23:59 | disposition home or self-care (01) ==
LOC: LAB.WCP 08:00
PROVIDERS: ATTEND Physician Assistant Medical
DX: E11.59 Type 2 diabetes mellitus with other circulatory complications (principal)
CPT/HCPCS: 36415; 80053; 80061; 83036; 83721

== ENCOUNTER 2021-11-23 08:00 | Outpatient (CLI) | payer MEDICARE, OTHER ==
[2021-11-23 11:58] LABS: CALCIUM 9.2 mg/dL (8.5-10.3); CREATININE 1.1 mg/dL (0.4-1.0); POTASSIUM 3.7 mmol/L (3.5-5.0)
[2021-11-23 12:19] LABS: ESTIMATED AVERAGE GLUCOSE 177 mg/dL (70-100); HEMOGLOBIN A1c% 7.8 % (4.27-6.07)
== END 2021-11-23 23:59 | disposition home or self-care (01) ==
LOC: LAB.WCP 08:00
PROVIDERS: ATTEND Physician Assistant Medical
DX: E11.59 Type 2 diabetes mellitus with other circulatory complications (principal)
CPT/HCPCS: 36415; 80048; 83036

== ENCOUNTER 2021-12-20 16:25 | Emergency (ER) | payer MEDICARE, OTHER ==
[2021-12-20] MEDS ORDERED: ACETAMINOPHEN 500 MG TABLET PO STA (16:44)
--- NOTE | 2021-12-20 16:44 | ED Physician Documentation ---
PD HPI HEADACHE - Stated complaint Stated Complaint: HBP/HEADACHE - Chief complaint Chief Complaint: Neuro - History obtained from History obtained from: Patient - Additional information Additional information: 76-year-old woman with history of hypertension, type 2 diabetes, presents with headache. She had a gradual onset bifrontal headache starting around 10 this morning. She states that she does not frequently get headaches and its not the worst of her life. It was not sudden in onset. She notes now that she then she took her blood pressure at home and both times it was 170 systolic. She denies neck stiffness, weakness, numbness, tingling, chest pain, or shortness of breath. She states she has been compliant with her antihypertensives. 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, Breast cancer : None HEENT: None Psych: None, Depression Musculoskeletal: None, Chronic back pain, Other Derm: None - Past Surgical History Past Surgical History: Yes General: 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: Dilation and currettage, Tubal ligation, Other - Present Medications Home Medications: Ambulatory Orders Medication Instructions Recorded Confirmed Amlodipine Besylate 10 mg PO DAILY 03/23/13 12/20/21 Aripiprazole [Abilify] 5 mg PO QPM 03/23/13 12/20/21 Aspirin Chewable [St Simon 1 tab ORAL DAILY 03/23/13 12/20/21 Aspirin] Carvedilol [Coreg] 25 mg PO BID 03/23/13 12/20/21 Citalopram Hydrobromide [Celexa] 40 mg PO DAILY 03/23/13 12/20/21 Isosorbide Mononitrate [Imdur] 60 mg PO DAILY 03/23/13 12/20/21 Losartan [Cozaar] 50 mg PO BID 03/23/13 12/20/21 Metformin HCl [Glucophage Xr] 500 mg PO BID 03/23/13 12/20/21 Nitroglycerin [Nitrostat] 0.4 mg SL Q5MIN PRN 03/23/13 12/20/21 Simvastatin [Zocor] 40 mg PO QPM 03/23/13 12/20/21 Dextran/Hypromellose/Glycerin 1 drop EACHEYE DAILY 07/27/16 12/20/21 [Genteal Tears 0.1%-0.2%-0.3%] Melatonin/Herbal Comb. No.184 3 mg PO QPM 07/27/16 12/20/21 [Melatonin + l-Theanine Softgel] Omeprazole 20 mg PO DAILY 09/23/18 12/20/21 Cholecalciferol (Vitamin D3) 2,000 unit PO DAILY 01/26/20 12/20/21 [Vitamin D3] Glimepiride 2 mg PO DAILY 01/26/20 12/20/21 SITagliptin [Januvia] 100 mg PO DAILY 01/26/20 12/20/21 Buspirone HCl 5 mg PO TID 01/27/20 12/20/21 Lisdexamfetamine Dimesylate 70 mg PO DAILY 04/16/21 12/20/21 [Vyvanse] Torsemide 40 mg PO DAILY 04/16/21 12/20/21 traZODone [Desyrel] 50 mg PO QPM 04/16/21 12/20/21 Potassium Chloride 20 meq PO DAILY 12/20/21 12/20/21 - Allergies Allergies/Adverse Reactions: Allergies Allergy/AdvReac Type Severity Reaction Status Date / Time captopril [From Capoten] Allergy Severe Edema Verified 12/20/21 16:37 pentazocine HCl * Allergy Severe Hallucinati Verified 12/20/21 16:37 [From Talwin Compound] ons adhesive tape Allergy Unknown Verified 12/20/21 16:37 atenolol Allergy Unknown Verified 12/20/21 16:37 iodine Allergy Rash Verified 12/20/21 16:37 pentazocine Allergy Unknown Verified 12/20/21 16:37 Sulfa (Sulfonamide Allergy Unknown Verified 12/20/21 16:37 Antibiotics) sulfamethoxazole Allergy Unknown Verified 12/20/21 16:37 [From Septra] trimethoprim [From ] Allergy Unknown Verified 12/20/21 16:37 ibuprofen AdvReac Intermediate Emesis Verified 12/20/21 16:37 metformin AdvReac Nausea Verified 04/30/21 12:17 - Social History Does the pt smoke?: No Smoking Status: Never smoker Does the pt drink ETOH?: No Does the pt have substance abuse?: No - Immunizations Immunizations are current?: Yes - POLST Patient has POLST: No POLST Status: Full Code PD ED PE NORMAL - Vitals Vital signs reviewed: Yes - General General: Alert and oriented X 3, No acute distress - HEENT HEENT: PERRL, EOMI - Neck Neck: Supple, no meningeal sign, No bony TTP - Cardiac Cardiac: RRR, No murmur - Respiratory Respiratory: No respiratory distress, Clear bilaterally - Abdomen Abdomen: Normal bowel sounds, Soft, Non tender - Back Back: No CVA TTP, No spinal TTP - Derm Derm: Normal color, Warm and dry - Extremities Extremities: No edema, No calf tenderness / cord - Neuro Neuro: Alert and oriented X 3, 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, No motor deficit, No sensory deficit, Normal speech Eye Opening: Spontaneous Motor: Obeys Commands Verbal: Oriented GCS Score: 15 Results - Vitals Vitals: Vital Signs - 24 hr 12/20/21 12/20/21 12/20/21 16:33 16:58 17:36 Temperature 36.0 C L Heart Rate 69 73 67 Respiratory 16 16 15 Rate Blood Pressure 142/74 H 151/58 H 149/60 H O2 Saturation 94 97 98 Oxygen O2 Source Room air - Labs Labs: Laboratory Tests 12/20/21 12/20/21 16:52 16:52 WBC 5.5 RBC 5.18 Hgb 13.7 Hct 41.4 MCV 79.9 L MCH 26.4 L MCHC 33.1 RDW 13.8 Plt Count 225 MPV 10.3 Neut # (Auto) 3.0 Lymph # (Auto) 1.7 [place] # (Auto) 0.7 Eos # (Auto) 0.1 Baso # (Auto) 0.0 Absolute Nucleated RBC 0.00 Nucleated RBC % 0.0 Sodium 136 Potassium 3.6 Chloride 99 L Carbon Dioxide 27 Anion Gap 10.0 BUN 23 H Creatinine 1.1 H Estimated GFR (MDRD) 59 L Glucose 166 H Calcium 9.2 Magnesium 1.9 PD MEDICAL DECISION MAKING - ED course ED course: 76-year-old woman presents with headache, gradual in onset and not the worst of her life with unremarkable exam but she is concerned about her blood pressures which were significantly higher at home in the 170 systolic range, than they are here which is in the 140 systolic range. She was feeling better after Tylenol and a CT of the head and labs were without acute significant abnormality. Departure - Departure Disposition: 01 Home, Self Care Clinical Impression: Headache Qualifiers: Headache type: tension-type Headache chronicity pattern: acute headache Intractability: not intractable Qualified Code(s): G44.209 - Tension-type headache, unspecified, not intractable Condition: Good Record reviewed to determine appropriate education?: Yes Instructions: ED Headache Tension Print Language: Yoruba Comments: Blood pressures here not too bad in the range of 140/60. CAT scan and labs generally unremarkable. Return for new or worsening symptoms. Tylenol as needed for the headache. Follow-up with your doctor, next available appointment . Discharge Date/Time: 12/20/21 18:00
[2021-12-20 17:03] LABS: BASOPHILS % (AUTO) 0.5 %; EOSINOPHILS # (AUTO) 0.1 10^3/uL (0.0-0.7); EOSINOPHILS % (AUTO) 1.6 %; HCT - HEMATOCRIT 41.4 % (37.0-47.0); HGB - HEMOGLOBIN 13.7 g/dL (12.0-16.0); LYMPHOCYTES # (AUTO) 1.7 10^3/uL (1.5-3.5); LYMPHOCYTES % (AUTO) 31.2 %; MEAN CORPUSCULAR HEMOGLOBIN 26.4 pg (27.0-31.0); MEAN CORPUSCULAR HGB CONC 33.1 g/dL (32.0-36.0); MEAN CORPUSCULAR VOLUME 79.9 fL (81.0-99.0); MEAN PLATELET VOLUME 10.3 fL (7.9-10.8); MONOCYTES # (AUTO) 0.7 10^3/uL (0.0-1.0); MONOCYTES % (AUTO) 12.8 %; NEUTROPHILS % (AUTO) 53.5 %; PLT - PLATELET COUNT 225 10^3/uL (130-450); RED BLOOD COUNT 5.18 10^6/uL (4.20-5.40); RED CELL DISTRIBUTION WIDTH 13.8 % (12.0-15.0); WHITE BLOOD COUNT 5.5 x10^3/uL (4.8-10.8)
[2021-12-20 17:06] LABS: CALCIUM 9.2 mg/dL (8.5-10.3); CREATININE 1.1 mg/dL (0.4-1.0); MAGNESIUM 1.9 mg/dL (1.7-2.8); POTASSIUM 3.6 mmol/L (3.5-5.0)
[2021-12-20 17:36] VITALS: BP 149/60
--- NOTE | 2021-12-20 17:46 | CT Report ---
PROCEDURE: HEAD WO INDICATIONS: headache TECHNIQUE: Noncontrast 4.5 mm thick angled axial sections acquired from the foramen magnum to the vertex. For r adiation dose reduction, the following was used: automated exposure control, adjustment of mA and/or kV according to patient size. COMPARISON: None. FINDINGS: Image quality: Excellent. CSF spaces: Basal cisterns are patent. No extra-axial fluid collections. Ventricles are normal in size and shape. Brain: No midline shift. No intracranial masses or hemorrhage. Howe-white matter interface is norm al. There is diffuse cortical volume loss with associated ex vacuo dilatation of the bilateral ventr icles. No acute intracranial hemorrhage or evidence of transcortical infarction. Scattered bilatera l periventricular white matter hypoattenuation likely sequela from chronic small vessel ischemic dise ase. Atherosclerotic calcifications within the intracranial segments of the bilateral internal caroti d arteries are noted. Skull and face: Calvarium and visualized facial bones are intact, without suspicious lesions. Sinuses: Scattered ethmoid sinus mucosal thickening. Remainder the visualized paranasal sinuses and m astoids are clear. IMPRESSION: CT head without acute intracranial abnormalities. No acute calvarial fractures. No mass or mass effec t. Age-related senescent changes and sequela of chronic small vessel ischemic disease. Reviewed by: Radu Michel MD on 12/20/2021 4:44 PM [facility] Approved by: Radu Michel MD on 12/20/2021 4:44 PM [place] Station ID: [id number]
== END 2021-12-20 18:00 | disposition home or self-care (01) ==
LOC: ED 16:25
DX: G44.209 Tension-type headache, unspecified, not intractable (principal); I10 Essential (primary) hypertension; E11.9 Type 2 diabetes mellitus without complications; Z79.84 Long term (current) use of oral hypoglycemic drugs
CPT/HCPCS: 36415; 70450; 80048; 83735; 85025; 99282; 99284; A9270

== ENCOUNTER 2022-05-21 14:04 | Outpatient (CLI) | payer MEDICARE, OTHER ==
[2022-05-21 18:39] LABS: ALBUMIN 3.9 g/dL (3.2-5.5); ALBUMIN/GLOBULIN RATIO 1.4 (1.0-2.2); ALKALINE PHOSPHATASE 58 IU/L (42-121); ALT ALANINE AMINOTRANSFERASE 16 IU/L (10-60); AST ASPARTATE AMINOTRANSFERASE 19 IU/L (10-42); BILIRUBIN,TOTAL 0.6 mg/dL (0.2-1.0); BUN - BLOOD UREA NITROGEN 16 mg/dL (6-20); CALCIUM 9.2 mg/dL (8.5-10.3); CARBON DIOXIDE - CO2 28 mmol/L (21-32); CHLORIDE 101 mmol/L (101-111); CHOL/HDL RATIO 2.2 (<4.4); CHOLESTEROL 119 mg/dL; CREATININE 1.1 mg/dL (0.4-1.0); GFR - MDRD 59 (>89); GLUCOSE 157 mg/dL (70-100); HDL CHOLESTEROL 54 mg/dL; LDL CHOLESTEROL,CALCULATED 50 mg/dL; LDL/HDL RATIO 0.9 (<4.4); SODIUM 137 mmol/L (135-145); TOTAL PROTEIN 6.7 g/dL (6.7-8.2); TRIGLYCERIDES 76 mg/dL; VLDL CHOLESTEROL 15 mg/dL
[2022-05-22 09:28] LABS: ESTIMATED AVERAGE GLUCOSE 166 mg/dL (70-100); HEMOGLOBIN A1c% 7.4 % (4.27-6.07)
== END 2022-05-21 14:05 | disposition home or self-care (01) ==
LOC: LAB.N 14:04
PROVIDERS: ATTEND Physician Assistant Medical
DX: E11.59 Type 2 diabetes mellitus with other circulatory complications (principal); E53.8 Deficiency of other specified B group vitamins
CPT/HCPCS: 36415; 80053; 80061; 82607; 83036; 83721

== ENCOUNTER 2022-07-14 15:41 | Outpatient (CLI) | payer MEDICARE, OTHER ==
[2022-07-14 21:05] LABS: BASOPHILS % (AUTO) 0.5 %; HCT - HEMATOCRIT 41.4 % (37.0-47.0); HGB - HEMOGLOBIN 13.2 g/dL (12.0-16.0); LYMPHOCYTES # (AUTO) 2.2 10^3/uL (1.5-3.5); LYMPHOCYTES % (AUTO) 40.3 %; MEAN CORPUSCULAR HEMOGLOBIN 26.4 pg (27.0-31.0); MEAN CORPUSCULAR HGB CONC 31.9 g/dL (32.0-36.0); MEAN CORPUSCULAR VOLUME 82.8 fL (81.0-99.0); MEAN PLATELET VOLUME 11.2 fL (7.9-10.8); MONOCYTES # (AUTO) 0.4 10^3/uL (0.0-1.0); MONOCYTES % (AUTO) 7.5 %; NEUTROPHILS # (AUTO) 2.8 10^3/uL (1.5-6.6); NEUTROPHILS % (AUTO) 51.5 %; PLT - PLATELET COUNT 242 10^3/uL (130-450); RED CELL DISTRIBUTION WIDTH 14.1 % (12.0-15.0); WHITE BLOOD COUNT 5.5 x10^3/uL (4.8-10.8)
[2022-07-16 04:09] LABS: RPR Non Reactive (Non Reactive)
[2022-07-17 07:08] LABS: ANGIOTENSIN-CONVERTING ENZYME 34 U/L (14-82)
== END 2022-07-14 15:42 | disposition home or self-care (01) ==
LOC: LAB.F 15:41
PROVIDERS: ATTEND Physician Assistant Medical
DX: H20.9 Unspecified iridocyclitis (principal)
CPT/HCPCS: 36415; 81374; 82164; 85025; 86140; 86592

== ENCOUNTER 2022-08-31 11:20 | Outpatient (CLI) | payer MEDICARE, OTHER ==
[2022-08-31 18:42] LABS: CALCIUM 9.5 mg/dL (8.5-10.3); POTASSIUM 4.1 mmol/L (3.5-5.0)
[2022-08-31 20:24] LABS: ESTIMATED AVERAGE GLUCOSE 154 mg/dL (70-100)
== END 2022-08-31 11:21 | disposition home or self-care (01) ==
LOC: LAB.N 11:20
PROVIDERS: ATTEND Physician Assistant Medical
DX: E11.59 Type 2 diabetes mellitus with other circulatory complications (principal)
CPT/HCPCS: 36415; 80048; 83036

== ENCOUNTER 2022-09-15 11:41 | Emergency (ER) | payer MEDICARE, OTHER ==
--- OUTSIDE RECORDS SUMMARY | 2022-09-15 12:46 | EXTERNAL MEDICAL SUMMARY RPT | Continuity of Care Document ---
:1945 Author Organization [facility] Address [address] [place] [address] Phone Care Team Providers Name Role Phone Kym Figueroa Unavailable Unavailable Allergies No information. Encounters No information. Functional Status No information. Immunizations No information. Medications No information. Problems No information. Procedures No information. Results/Labs No information. Social History date description facility [phone] Ex-smoker ([facility] Vital Signs No information.
--- NOTE | 2022-09-15 13:31 | XRAY Report ---
PROCEDURE: Chest 2 View X-Ray INDICATIONS: cough TECHNIQUE: 2 views of the chest were acquired. COMPARISON: CT chest 03/24/2020. FINDINGS: Surgical changes and devices: Left breast clips. Lungs and pleura: No pleural effusions or pneumothorax. Lungs appear clear. Mediastinum: Mediastinal contours are normal. Heart size is normal. Bones and chest wall: No suspicious bony abnormalities. Soft tissues appear unremarkable. IMPRESSION: No acute cardiopulmonary abnormality. Reviewed by: Mando Weiss MD on 09/15/2022 1:29 PM PST Approved by: Mando Weiss MD on 09/15/2022 1:29 PM PST Station ID: [id number]
[2022-09-15 13:51] LABS: B. PARAPERTUSSIS- RESP PCR PAN NOT DETECTED; B. PERTUSSIS- RESP PCR PANEL NOT DETECTED; C. PNEUMONIAE- RESP PCR PANEL NOT DETECTED; CORONAVIRUS 229E-RESP PCR NOT DETECTED; CORONAVIRUS HKU1-RESP PCR NOT DETECTED; CORONAVIRUS NL63-RESP PCR NOT DETECTED; CORONAVIRUS OC43-RESP PCR NOT DETECTED; HUMAN METAPNEUMOVIRUS NOT DETECTED; INFLUENZA A- RESP PCR PANEL NOT DETECTED; INFLUENZA B - RESP PCR PANEL NOT DETECTED; M. PNEUMONIAE- RESP PCR PANEL NOT DETECTED; PARAINFLUENZA VIRUS 1 NOT DETECTED; PARAINFLUENZA VIRUS 2 NOT DETECTED; PARAINFLUENZA VIRUS 3 NOT DETECTED; PARAINFLUENZA VIRUS 4 NOT DETECTED; RHINOVIRUS/ENTEROVIRUS NOT DETECTED; RSV- RESP PCR PANEL NOT DETECTED; SARS-CoV-2 -RESP PCR PANEL NOT DETECTED
[2022-09-15] MEDS ORDERED: BENZONATATE 100 MG CAPSULE PO STA (14:11)
[2022-09-15] MEDS ORDERED: DOXYCYCLINE 100 MG TABLET PO STA (14:11)
--- NOTE | 2022-09-15 14:14 | ED Physician Documentation ---
History of Present Illness - Stated complaint Stated Complaint: DIZZY/COUGH - Chief complaint Chief Complaint: Resp - History obtained from History obtained from: Patient - Additonal information Additional information: 76-year-old woman was exposed to influenza by her and got sick last night with cough, body aches, chills. The cough is quite bad. She is mildly short of breath with it and gets dizzy and has a headache when she coughs especially. Review of Systems Constitutional: reports: Chills, Myalgias. 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 HEENT: None Psych: None, Depression Musculoskeletal: None, Chronic back pain, Other Derm: None - Past Surgical History Past Surgical History: Yes General: 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, Tubal ligation, Other - Present Medications Home Medications: Ambulatory Orders Medication Instructions Recorded Confirmed Amlodipine Besylate 10 mg PO DAILY 03/23/13 12/20/21 Aripiprazole [Abilify] 5 mg PO QPM 03/23/13 12/20/21 Aspirin Chewable [St Simon 1 tab ORAL DAILY 03/23/13 12/20/21 Aspirin] Carvedilol [Coreg] 25 mg PO BID 03/23/13 12/20/21 Citalopram Hydrobromide [Celexa] 40 mg PO DAILY 03/23/13 12/20/21 Isosorbide Mononitrate [Imdur] 60 mg PO DAILY 03/23/13 12/20/21 Losartan [Cozaar] 50 mg PO BID 03/23/13 12/20/21 Metformin HCl [Glucophage Xr] 500 mg PO BID 03/23/13 12/20/21 Nitroglycerin [Nitrostat] 0.4 mg SL Q5MIN PRN 03/23/13 12/20/21 Simvastatin [Zocor] 40 mg PO QPM 03/23/13 12/20/21 Dextran/Hypromellose/Glycerin 1 drop EACHEYE DAILY 07/27/16 12/20/21 [Genteal Tears 0.1%-0.2%-0.3%] Melatonin/Herbal Comb. No.184 3 mg PO QPM 07/27/16 12/20/21 [Melatonin + l-Theanine Softgel] Omeprazole 20 mg PO DAILY 09/23/18 12/20/21 Cholecalciferol (Vitamin D3) 2,000 unit PO DAILY 01/26/20 12/20/21 [Vitamin D3] Glimepiride 2 mg PO DAILY 01/26/20 12/20/21 SITagliptin [Januvia] 100 mg PO DAILY 01/26/20 12/20/21 Buspirone HCl 5 mg PO TID 01/27/20 12/20/21 Lisdexamfetamine Dimesylate 70 mg PO DAILY 04/16/21 12/20/21 [Vyvanse] Torsemide 40 mg PO DAILY 04/16/21 12/20/21 traZODone [Desyrel] 50 mg PO QPM 04/16/21 12/20/21 Potassium Chloride 20 meq PO DAILY 12/20/21 12/20/21 Albuterol Sulf [Ventolin Hfa 1 - 2 puffs INH Q4HR PRN #1 each 09/15/22 Inhaler] Benzonatate [Tessalon] 200 mg PO TID #20 cap 09/15/22 Doxycycline Hyclate 100 mg PO BID #14 cap 09/15/22 - Allergies Allergies/Adverse Reactions: Allergies Allergy/AdvReac Type Severity Reaction Status Date / Time captopril [From Capoten] Allergy Severe Edema Verified 09/15/22 12:06 pentazocine HCl * Allergy Severe Hallucinati Verified 09/15/22 12:06 [From Talwin Compound] ons adhesive tape Allergy Unknown Verified 09/15/22 12:06 atenolol Allergy Unknown Verified 09/15/22 12:06 iodine Allergy Rash Verified 09/15/22 12:06 pentazocine Allergy Unknown Verified 09/15/22 12:06 Sulfa (Sulfonamide Allergy Unknown Verified 09/15/22 12:06 Antibiotics) sulfamethoxazole Allergy Unknown Verified 09/15/22 12:06 [From Septra] trimethoprim [From Junra] Allergy Unknown Verified 09/15/22 12:06 ibuprofen AdvReac Intermediate Emesis Verified 09/15/22 12:06 metformin AdvReac Nausea Verified 09/15/22 12:06 - Social History Does the pt smoke?: No Smoking Status: Never smoker Does the pt drink ETOH?: No Does the pt have substance abuse?: No - Immunizations Immunizations are current?: Yes - POLST Patient has POLST: No POLST Status: Full Code PD ED PE NORMAL - Vitals Vital signs reviewed: Yes - General General: Alert and oriented X 3, No acute distress - Neck Neck: Supple, no meningeal sign, No bony TTP - Cardiac Cardiac: RRR, No murmur - Respiratory Respiratory: No respiratory distress, Other (Potentially some rhonchi right upper lobe with mild expiratory wheezing but good air motion.) - Abdomen Abdomen: Non tender - Neuro Neuro: Alert and oriented X 3, Normal speech Results - Vitals Vitals: Vital Signs - 24 hr 09/15/22 12:00 Temperature 36.6 C Heart Rate 79 Respiratory 16 Rate Blood Pressure 147/66 H O2 Saturation 96 Oxygen O2 Source Room air - Labs Labs: Laboratory Tests 09/15/22 12:24 Nasal Adenovirus (PCR) NOT DETECTED Nasal B. parapertussis DNA (PCR) NOT DETECTED Nasal Coronavir 229E PCR NOT DETECTED Nasal Coronavir HKU1 PCR NOT DETECTED Nasal Coronavir NL63 PCR NOT DETECTED Nasal Coronavir OC43 PCR NOT DETECTED Nasal Enterovir/Rhinovir PCR NOT DETECTED Nasal Influenza B PCR NOT DETECTED Nasal Influenza A PCR NOT DETECTED Nasal Parainfluen 1 PCR NOT DETECTED Nasal Parainfluen 2 PCR NOT DETECTED Nasal Parainfluen 3 PCR NOT DETECTED Nasal Parainfluen 4 PCR NOT DETECTED Nasal RSV (PCR) NOT DETECTED Nasal B.pertussis DNA PCR NOT DETECTED Nasal C.pneumoniae (PCR) NOT DETECTED [place] Human Metapneumo PCR NOT DETECTED Nasal M.pneumoniae (PCR) NOT DETECTED Nasal SARS-CoV-2 (PCR) NOT DETECTED PD MEDICAL DECISION MAKING - ED course ED course: 76-year-old woman presents with symptoms of a respiratory infection, given advanced age and the severity of her symptoms will treat with antibiotics despite negative x-ray. Departure - Departure Disposition: 01 Home, Self Care Clinical Impression: Bronchitis Condition: Good Record reviewed to determine appropriate education?: Yes Instructions: ED Bronchitis Asthmatic Prescriptions: Albuterol Sulf [Ventolin Hfa Inhaler] 1 - 2 puffs INH Q4HR PRN #1 each PRN Reason: Shortness Of Air/Wheezing Doxycycline Hyclate 100 mg PO BID #14 cap Benzonatate [Tessalon] 200 mg PO TID #20 cap Comments: I sent your prescriptions electronically to the [facility] [place]. Your chest x-ray did not show any pneumonia, Call your doctor to arrange a follow-up appointment, make the next available appointment. In the interim, return anytime if worse or if new symptoms develop.
[2022-09-15 14:26] VITALS: BP 188/83
== END 2022-09-15 14:38 | disposition home or self-care (01) ==
LOC: ED 11:41
DX: J40 Bronchitis, not specified as acute or chronic (principal); Z20.822 Contact with and (suspected) exposure to COVID-19
CPT/HCPCS: 71046; 87633; 99282; 99284; A9270

== ENCOUNTER 2022-09-24 09:44 | Outpatient (CLI) | payer MEDICARE, OTHER ==
--- NOTE | 2022-09-27 11:13 | Ultrasound Report ---
LIMITED ULTRASOUND OF LEFT BREAST: 09/24/2022 CLINICAL: Palpable left breast lump. No prior exams were available for comparison. Color flow and real-time ultrasound of the left breast 11 o'clock region were performed. Howe scale images of the real-time examination were reviewed. There is a 1.7 cm x 1.9 cm x 0.9 cm irregular mass with an angular margin in the left breast at 11 o' clock anterior depth 3 cm from the nipple. This irregular mass is hypoechoic and heterogeneously ech ogenic with a thick hyperechoic halo. This abnormality is increased in size and correlates as palpat ed and with mammography findings. There is an associated biopsy clip and skin involvement. Color fl ow imaging demonstrates that there is vascularity present. IMPRESSION: SUSPICIOUS OF MALIGNANCY The 1.7 cm x 1.9 cm x 0.9 cm irregular mass in the left breast is at a moderate suspicion for maligna ncy. An ultrasound guided biopsy is recommended. Findings and recommendations were discussed by Dr. Cooney with the patient at time of exam. This exam was interpreted at Station ID: [id number]. Electronically Signed By: Jaleesa post/:09/24/2022 11:34:50 Ultrasound BI-RADS: 4b Moderate suspicion of malignancy BI-RADS CATEGORY: (4b) - Mod Susp Biopsy [id number] Immediate follow-up LATERALITY: (L)
--- NOTE | 2022-09-27 11:13 | Mammography Report ---
BILATERAL DIGITAL DIAGNOSTIC MAMMOGRAM 3D/2D: 09/24/2022 CLINICAL: Palpable left breast lump. Personal history of left breast cancer. Due for bilateral. Comparison is made to exams dated: 06/11/2021 mammogram, 06/03/2021 mammogram, 02/27/2019 mammogram, 12/22 mammogram, 03/01/2016 mammogram, and 11/09/2014 mammogram - [facility]. Both breasts are almost entirely fatty (category a/<25% glandular tissue). There is an irregular high density asymmetry in the right breast at 12 o'clock posterior depth, biops y proven to be fat necrosis. This has decreased in size. There is an irregular high density mass in the left breast at 11 o'clock anterior depth. This also h as been previously biopsied, as demonstrated by biopsy clip and diagnosed as fat necrosis This has increased in size and density and correlates as palpated. There is reportedly skin discoloration and dimpling associated with the mass. No other significant masses or calcifications are seen in either breast. IMPRESSION: INCOMPLETE: NEEDS ADDITIONAL IMAGING EVALUATION The irregular high density asymmetry in the right breast at 12 o'clock posterior depth has decreased in size, is consistent with fat necrosis and is benign. The irregular high density mass in the left breast at 11 o'clock anterior depth has increased in size . Fat necrosis is still possible, however, there may have been a false negative biopsy. Further evalu ation of this area with ultrasound is recommended. This was performed immediately following this exam . This exam was interpreted at Station ID: [id number]. NOTE: For mammograms, a report in lay terms will be sent to the patient. Approximately 15% of breast malignancies will not be visualized mammographically. In the management of a palpable breast mass, a negative mammogram must not discourage biopsy of a clinically suspicious lesion. Electronically Signed By: Jaleesa post/:09/24/2022 11:30:51 ACR BI-RADS Category 0: Incomplete 3340F PARENCHYMAL PATTERN: (F) - The breast(s) demonstrate(s) diffuse fatty replacement. BI-RADS CATEGORY: (0) - 0 Ultrasound [id number] Immediate follow-up LATERALITY: (B)
== END 2022-09-24 09:45 | disposition home or self-care (01) ==
LOC: DI 09:44
PROVIDERS: ATTEND Physician Assistant Medical
DX: N63.22 Unspecified lump in the left breast, upper inner quadrant (principal); Z85.3 Personal history of malignant neoplasm of breast

== ENCOUNTER 2022-09-28 08:00 | Outpatient (CLI) | payer MEDICARE, OTHER | END 2022-09-28 23:59 | disposition home or self-care (01) | LOC: LAB.N 08:00 | PROVIDERS: ATTEND Physician Assistant Medical | DX: R31.9 Hematuria, unspecified (principal) | CPT/HCPCS: 87077; 87086; 87181 ==

== ENCOUNTER 2022-10-06 09:30 | Outpatient (CLI) | payer MEDICARE, OTHER ==
[~2022-10-06 09:30] MED LIST changes: -BUFFERED LIDOCAINE 10 ML SYRINGE ONE; +LIDOCAINE 1%-EPI 1:100000 20 ML MDV ONE; -LIDOCAINE MPF 1%-EPI 1:200000 30 ML VIAL ONE; +LIDOCAINE-MPF 1% 5 ML VIAL ONE
[2022-10-06] MEDS ORDERED: LIDOCAINE-MPF 1% 5 ML VIAL TD ONE (11:31)
[2022-10-06] MEDS ORDERED: LIDOCAINE 1%-EPI 1:100000 20 ML MDV SUBQ ONE (11:32)
--- NOTE | 2022-10-07 10:59 | Mammography Report ---
UNILATERAL LEFT DIGITAL DIAGNOSTIC MAMMOGRAM POST-PROCEDURE IMAGING FOR MARKER PLACEMENT: 10/06/2022 CLINICAL: Post left breast ultrasound biopsy clip placement imaging. Comparison is made to exams dated: 09/24/2022 mammogram, 06/11/2021 mammogram, 06/03/2021 mammogram, 02/27/2019 mammogram, 01/02/2018 mammogram, and 03/01/2016 mammogram - [facility]. The left breast is almost entirely fatty (category a/<25% glandular tissue). There is a marker clip in the appropriate position in the left breast at 11 o'clock anterior depth. This marker clip placement is at the biopsy site. IMPRESSION: POST PROCEDURE MAMMOGRAM FOR MARKER PLACEMENT There was a successful marker clip placement in the left breast anterior depth. This exam was interpreted at Station ID: [id number]. NOTE: For mammograms, a report in lay terms will be sent to the patient. Approximately 15% of breast malignancies will not be visualized mammographically. In the management of a palpable breast mass, a negative mammogram must not discourage biopsy of a clinically suspicious lesion. Electronically Signed By: Raleigh Conti M.D. jl/:10/06/2022 15:35:05 ACR BI-RADS Category Post-procedure mammogram for marker placement PARENCHYMAL PATTERN: (F) - The breast(s) demonstrate(s) diffuse fatty replacement. BI-RADS CATEGORY: () - Unspecified - other recall n/a LATERALITY: (B)
--- NOTE | 2022-10-12 09:42 | Ultrasound Report ---
ULTRASOUND GUIDED BIOPSY LEFT BREAST WITH MARKING DEVICE INSERTED AND POST DIGITAL MAMMOGRAPHIC IMAGI N10/06/2022 CLINICAL: Left breast mass. PATIENT CONSENT: Risks (minor bleeding, infection, vasovagal reaction and repeat procedure), benefits and alternatives were explained to the patient and written informed consent was obtained. Correlation is made to exams dated: 09/24/2022 ultrasound, 09/24/2022 mammogram, 06/11/2021 ultrasound biopsy, 06/11/2021 mammogram, 06/03/2021 ultrasound, and 06/03/2021 mammogram - [facility] nt. An ultrasound guided biopsy using real-time ultrasound was performed for the lobulated nodule located in the left breast at 11 o'clock anterior depth. This was described on the previous ultrasound repo rt. The skin was prepped in the usual manner. Local anesthetic was administered to the access site. A small incision was made in the breast. The abnormality was approached from the craniocaudal aspe ct. A 12 gauge biopsy needle was placed adjacent to the abnormality under ultrasound guidance. Once the needle was documented to be in the correct location, three specimens were obtained using a BARD biopsy device. A clip was inserted into the biopsy cavity. Post procedure digital mammographic imag ing demonstrates the location device at the targeted area. The specimens were sent to the laboratory for pathological analysis. IMPRESSION: ULTRASOUND GUIDED BIOPSY BENIGN Ultrasound guided biopsy of the nodule in the left breast at 11 o'clock anterior depth was successful with no apparent post procedure complications. Pathology indicates benign fat necrosis (FN). Patho logy results are concordant with imaging findings. Return to annual mammogram screening schedule is recommended. This exam was interpreted at Station ID: [id number]. Raleigh garcia,acr/:10/11/2022 17:05:50 BI-RADS CATEGORY: () - Mammogram [id number] return to screening LATERALITY: (B)
== END 2022-10-06 09:31 | disposition home or self-care (01) ==
LOC: DI 09:30
PROVIDERS: ATTEND Physician Assistant Medical
DX: N64.1 Fat necrosis of breast (principal)
CPT/HCPCS: 19083

== ENCOUNTER 2022-11-30 09:02 | Outpatient (CLI) | payer MEDICARE, OTHER ==
[2022-11-30 12:35] LABS: BASOPHILS % (AUTO) 0.7 %; EOSINOPHILS # (AUTO) 0.1 10^3/uL (0.0-0.7); EOSINOPHILS % (AUTO) 1.4 %; HCT - HEMATOCRIT 43.6 % (37.0-47.0); HGB - HEMOGLOBIN 13.8 g/dL (12.0-16.0); LYMPHOCYTES # (AUTO) 2.4 10^3/uL (1.5-3.5); LYMPHOCYTES % (AUTO) 43.2 %; MEAN CORPUSCULAR HEMOGLOBIN 26.4 pg (27.0-31.0); MEAN CORPUSCULAR HGB CONC 31.7 g/dL (32.0-36.0); MEAN CORPUSCULAR VOLUME 83.4 fL (81.0-99.0); MEAN PLATELET VOLUME 10.7 fL (7.9-10.8); MONOCYTES # (AUTO) 0.7 10^3/uL (0.0-1.0); MONOCYTES % (AUTO) 11.8 %; NEUTROPHILS # (AUTO) 2.4 10^3/uL (1.5-6.6); NEUTROPHILS % (AUTO) 42.5 %; PLT - PLATELET COUNT 242 10^3/uL (130-450); RED BLOOD COUNT 5.23 10^6/uL (4.20-5.40); RED CELL DISTRIBUTION WIDTH 13.8 % (12.0-15.0); WHITE BLOOD COUNT 5.5 x10^3/uL (4.8-10.8)
[2022-11-30 13:22] LABS: THYROID STIMULATING HORMONE 1.11 uIU/mL (0.34-5.60)
[2022-11-30 13:43] LABS: ESTIMATED AVERAGE GLUCOSE 146 mg/dL (70-100); HEMOGLOBIN A1c% 6.7 % (4.27-6.07)
[2022-11-30 17:38] LABS: ALBUMIN 3.9 g/dL (3.2-5.5); ALBUMIN/GLOBULIN RATIO 1.3 (1.0-2.2); ALKALINE PHOSPHATASE 55 IU/L (42-121); ALT ALANINE AMINOTRANSFERASE 22 IU/L (10-60); AST ASPARTATE AMINOTRANSFERASE 22 IU/L (10-42); BILIRUBIN,TOTAL 0.6 mg/dL (0.2-1.0); BUN - BLOOD UREA NITROGEN 17 mg/dL (6-20); CALCIUM 10.6 mg/dL (8.5-10.3); CARBON DIOXIDE - CO2 29 mmol/L (21-32); CHLORIDE 99 mmol/L (101-111); CHOL/HDL RATIO 2.2 (<4.4); CHOLESTEROL 123 mg/dL; CREATININE 1.3 mg/dL (0.4-1.0); GFR - MDRD 48 (>89); GLUCOSE 107 mg/dL (70-100); HDL CHOLESTEROL 55 mg/dL; LDL CHOLESTEROL,CALCULATED 46 mg/dL; LDL/HDL RATIO 0.8 (<4.4); POTASSIUM 3.7 mmol/L (3.5-5.0); SODIUM 144 mmol/L (135-145); TOTAL PROTEIN 6.8 g/dL (6.7-8.2); TRIGLYCERIDES 108 mg/dL; VLDL CHOLESTEROL 22 mg/dL
== END 2022-11-30 09:03 | disposition home or self-care (01) ==
LOC: LAB.N 09:02
PROVIDERS: ATTEND Physician Assistant Medical
DX: E11.59 Type 2 diabetes mellitus with other circulatory complications (principal); E53.8 Deficiency of other specified B group vitamins; E05.90 Thyrotoxicosis, unspecified without thyrotoxic crisis or storm
CPT/HCPCS: 36415; 80053; 80061; 82607; 83036; 83721; 84443; 85025

== ENCOUNTER 2023-03-15 10:55 | Outpatient (CLI) | payer MEDICARE, OTHER ==
[2023-03-15 17:48] LABS: BASOPHILS % (AUTO) 0.7 %; EOSINOPHILS # (AUTO) 0.1 10^3/uL (0.0-0.7); EOSINOPHILS % (AUTO) 1.6 %; HCT - HEMATOCRIT 42.7 % (37.0-47.0); HGB - HEMOGLOBIN 13.6 g/dL (12.0-16.0); LYMPHOCYTES % (AUTO) 36.3 %; MEAN CORPUSCULAR HEMOGLOBIN 26.6 pg (27.0-31.0); MEAN CORPUSCULAR HGB CONC 31.9 g/dL (32.0-36.0); MEAN CORPUSCULAR VOLUME 83.6 fL (81.0-99.0); MEAN PLATELET VOLUME 10.7 fL (7.9-10.8); MONOCYTES # (AUTO) 0.6 10^3/uL (0.0-1.0); MONOCYTES % (AUTO) 11.4 %; NEUTROPHILS # (AUTO) 2.8 10^3/uL (1.5-6.6); NEUTROPHILS % (AUTO) 49.6 %; PLT - PLATELET COUNT 257 10^3/uL (130-450); RED BLOOD COUNT 5.11 10^6/uL (4.20-5.40); RED CELL DISTRIBUTION WIDTH 14.3 % (12.0-15.0); WHITE BLOOD COUNT 5.6 x10^3/uL (4.8-10.8)
[2023-03-15 18:07] LABS: ALBUMIN 3.9 g/dL (3.2-5.5); ALBUMIN/GLOBULIN RATIO 1.3 (1.0-2.2); BILIRUBIN,TOTAL 0.6 mg/dL (0.2-1.0); CALCIUM 9.3 mg/dL (8.5-10.3); CREATININE 1.1 mg/dL (0.4-1.0); POTASSIUM 3.8 mmol/L (3.5-5.0); TOTAL PROTEIN 6.9 g/dL (6.7-8.2)
== END 2023-03-15 10:56 | disposition home or self-care (01) ==
LOC: LAB.N 10:55
PROVIDERS: ATTEND Psychiatry & Neurology Neurology
DX: Z51.81 Encounter for therapeutic drug level monitoring (principal)
CPT/HCPCS: 36415; 80053; 85025

== ENCOUNTER 2023-04-05 10:08 | Outpatient (CLI) | payer MEDICARE, OTHER ==
[2023-04-05 12:14] LABS: CALCIUM 9.2 mg/dL (8.5-10.3); CREATININE 1.3 mg/dL (0.4-1.0); POTASSIUM 3.4 mmol/L (3.5-5.0)
[2023-04-05 12:21] LABS: ESTIMATED AVERAGE GLUCOSE 137 mg/dL (70-100); HEMOGLOBIN A1c% 6.4 % (4.27-6.07)
== END 2023-04-05 10:09 | disposition home or self-care (01) ==
LOC: LAB.N 10:08
PROVIDERS: ATTEND Physician Assistant Medical
DX: E11.59 Type 2 diabetes mellitus with other circulatory complications (principal)
CPT/HCPCS: 36415; 80048; 83036

== ENCOUNTER 2023-04-18 09:23 | Outpatient (CLI) | payer MEDICARE, OTHER ==
--- NOTE | 2023-04-18 11:57 | XRAY Report ---
PROCEDURE: Ribs 2 View RT INDICATIONS: RIB PAIN, RIGHT SIDED, HX OF BREAST CANCER TECHNIQUE: 2 views of the right ribs were acquired. COMPARISON: 09/15/2022 FINDINGS: Surgical changes and devices: Surgical clips in the left axilla and in the gallbladder fossa.. Bones and chest wall: No fractures or dislocations. No suspicious bony lesions. Overlying soft tis sues appear unremarkable. Lungs and pleura: The visualized lung appears clear. No pleural effusions or pneumothorax are visib le. IMPRESSION: 1. No visible rib fractures or suspicious bone lesions. If there is continued concern for occult bone lesion, nuclear medicine bone scan is recommended. Reviewed by: Jaleesa Leary MD on 04/18/2023 11:56 AM PDT Approved by: Jaleesa Leary MD on 04/18/2023 11:56 AM PDT Station ID: [id number]
== END 2023-04-18 09:24 | disposition home or self-care (01) ==
LOC: LAB.N 09:23 → DI.N 09:24
PROVIDERS: ATTEND Physician Assistant Medical
DX: R07.81 Pleurodynia (principal)

== ENCOUNTER 2023-04-30 10:03 | Outpatient (CLI) | payer MEDICARE, OTHER ==
--- NOTE | 2023-04-30 20:10 | XRAY Report ---
PROCEDURE: Thoracic Spine 3 View INDICATIONS: RIGHT THORACIC AND FLANK PAIN, HISTORY OF CANCER TECHNIQUE: 2 views of the thoracic spine were acquired. COMPARISON: None. FINDINGS: Bones: No fractures or dislocations. No suspicious bony lesions. 12 pairs of ribs are noted, and a ppear intact where visualized. Soft tissues: No paravertebral stripe thickening. IMPRESSION: Normal PA view of the chest and right ribs Reviewed by: Roger Cordero on 04/30/2023 7:09 PM BRANDON Approved by: Roger Cordero on 04/30/2023 7:09 PM BRANDON Station ID: [id number]
== END 2023-04-30 10:04 | disposition home or self-care (01) ==
LOC: DI 10:03
PROVIDERS: ATTEND Physician Assistant Medical
DX: M54.6 Pain in thoracic spine (principal)

== ENCOUNTER 2023-06-08 13:38 | Outpatient (CLI) | payer MEDICARE, OTHER ==
--- NOTE | 2023-06-08 15:03 | SLEEP CARE CONSULTATION ---
Information from patient questionnaire entered by Maribeth Brandon. I have reviewed and concur with the information entered by Maribeth Brandon. This document represents the service I personally performed and the decisions made by me, Rosmery Dobson ARNP. History of Present Illness Service Date and Time: 06/08/2023 1338 Reason for Visit: New patient, sleep apnea on CPAP therapy Accompanied by: Tracie Chief Complaint: reports: Excessive daytime sleepiness, Frequent awakenings at night, Other (UPDATE SUPPLIES) Date of Onset: 4MONTHS Usual bedtime: 10PM Time it takes to fall asleep: 30-45MIN Snores at night: Yes Observed to quit breathing while asleep: No Sleeps alone due to snoring: No Number of times waking at night: 1 Reasons for waking at night: reports: Bathroom Toss, Turn, or Twitch while sleeping: Yes Recalls having dreams: No Usually gets out of bed at: 10AM Feels refreshed in the morning: Yes Morning headache: No Sleepy or fatigued during the day: Yes Ever fallen asleep while driving: No Takes day naps: Yes Dreams during day naps: No Prior sleep studies: Yes Additional HPI information: ROOSEVELT CASSIDY was previously diagnosed to have unknown, AHI unknown, obstructive sleep apnea-hypopnea syndrome and comes in today with daughter, Tracie, to establish care for CPAP therapy. - Parasomnia Symptoms Ever been unable to move upon waking from sleep: No Walks in sleep: No Talks in sleep: No Ever acted out dreams in sleep: No Ever felt weak in the knees when startled or emotional: No Bothered by creepy, crawly, restless sensations in legs: No Problems with memory or concentration: Yes CPAP Compliance Data - Data Reviewed with Patient Average duration of nightly device use: 8 hours 59 minutes Compliance rate %: 94 (89/90 days used) Current pressure setting (cmH2O): 22/10 with 4 pressure support Average residual AHI: 6.2 Central apnea: 3.2 Obstructive apnea: 1.4 Hypopnea: 0.5 Average large leak: 9.6 L/min Compliance data discussion: She has a ResMed AirCurve 10 VAuto that was setup 01/2018. She is using a nasal cushion mask, small cushion, [employer] FX. She is getting her supplies from [employer]. Subjective Patient concerns: reports: mask discomfort, mask leak noise. denies: aerophagia, air blowing in eyes, condensation in mask/hose, nasal congestion, dry mouth, nose, throat, epistaxis Observed to snore while using device: No Current pressure setting perceived as: comfortable On therapy, patient: reports: sleeping better, awakening more refreshed, being more awake and alert during the day, more rested overall. 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 Patient is and lives in [place]. Have you smoked in the past 12 months: No Cigarettes per day (20/pack): 20 Years of smokin Quit date: 1979 Smoking Pack Years: 12.0 Alcohol use: No Caffeine use: Yes Caffeine amount and frequency: 1 cup coffee A DAY Family History Family history of sleep disordered breathing: Yes (daughter too) Family Hx Sleep Apnea: Sibling: Snoring, Sleep apnea - Treated Allergies and Home Medications Known drug allergies: Yes (as listed) Drug allergies reviewed: Yes Home medication list reviewed: Yes (see updated list in EMR) Allergy and home medication list: Allergies captopril [From Capoten] Allergy (Severe, Verified 06/07/23 11:15) Edema pentazocine HCl * [From Talwin Compound] Allergy (Severe, Verified 06/07/23 11:15) Hallucinations adhesive tape Allergy (Verified 06/07/23 11:15) Unknown atenolol Allergy (Verified 06/07/23 11:15) Unknown iodine Allergy (Verified 06/07/23 11:15) Rash pentazocine Allergy (Verified 06/07/23 11:15) Unknown Sulfa (Sulfonamide Antibiotics) Allergy (Verified 06/07/23 11:15) Unknown sulfamethoxazole [From Septra] Allergy (Verified 06/07/23 11:15) Unknown trimethoprim [From Septra] Allergy (Verified 06/07/23 11:15) Unknown ibuprofen Adverse Reaction (Intermediate, Verified 06/07/23 11:15) Emesis metformin Adverse Reaction (Verified 06/07/23 11:15) Nausea in large amounts Review of Systems Weight loss over past 5 years: 5 Cardiovascular: reports: high blood pressure Gastrointestinal: denies: heartburn Neurological: denies: headaches Ear/Nose/Throat: denies: tonsillectomy Endocrine: reports: sluggishness Musculoskeletal: reports: back pain Immunologic: reports: allergies to food or environment Physical Exam Vital signs obtained and entered by: MARIBETH Licea MA Blood Pressure: 122/62 (RIGHT ARM) Cuff size: long Heart Rate: 87 O2 Saturation: 97 Height: 5 ft 4 in Weight: 236 lb 9.6 oz Body Mass Index: 40.6 BMI Classification: Morbidly Obese Neck circumference: 17.5 Impression and Plan 1. Obstructive Sleep Apnea-Hypopnea Syndrome, unknown, with good treatment compliance and good apnea control. On BIPAP therapy, the patient has better sleep quality and is more rested overall. We are waiting on documents from her last sleep provider's office, last sleep study. She has a ResMed AirCurve BIPAP that is over 5 years old and of reasonable use. Thus, the CPAP will be updated. A DWO prescription will be made. Compliance guidelines for new device and follow up discussed. She will continue with [facility] and the prescription for the new device will be sent to them once we have all the documentation that we need. Patient's apnea severity and rationale for treatment to reduce apnea, improve sleep quality and reduce cardiovascular and cerebrovascular events was reviewed. I also reviewed the benefit of consistent device use of BIPAP for hypertension, diabetes and depression. 2. Obesity, unspecified. Currently patients BMI is 40.6. Obesity increases the risk of apnea, CPAP pressure requirements and overall health risks especially cardiovascular and diabetes. Thus patient is advised to lose weight. * Continue BIPAP pressure at 22/10 cmH2O with 4 pressure support * Update machine once we have copy of sleep study * Update supplies * Notify me if snoring with mask or feeling that the pressure is too much or too little * Attempt to lose weight * Call this office if any problems using BIPAP * Return for follow up one month after obtaining new device, or sooner if concerns arise Counseling Topics: Spare mask, Weight loss health impact Visit Type: In Office Time Spent with Patient (minutes): 47 Provider Statement: I spent 100% of the Face to Face Visit with the patient with greater than 50% spent counseling the patient and coordination of care.
[2023-06-08 15:08] VITALS: BP 122/62; O2SAT 97
== END 2023-06-08 13:39 | disposition home or self-care (01) ==
LOC: SC 13:38
PROVIDERS: ATTEND Nurse Practitioner Family
DX: G47.33 Obstructive sleep apnea (adult) (pediatric) (principal); E66.01 Morbid (severe) obesity due to excess calories; Z68.41 Body mass index [BMI] 40.0-44.9, adult
CPT/HCPCS: 99203; G0463; 99212

== ENCOUNTER 2023-07-06 11:15 | Outpatient (CLI) | payer MEDICARE, OTHER ==
[2023-07-06 18:02] LABS: ALBUMIN 4.1 g/dL (3.2-5.5); ALBUMIN/GLOBULIN RATIO 1.7 (1.0-2.2); ALKALINE PHOSPHATASE 67 IU/L (42-121); ALT ALANINE AMINOTRANSFERASE 15 IU/L (10-60); AST ASPARTATE AMINOTRANSFERASE 17 IU/L (10-42); BILIRUBIN,TOTAL 0.4 mg/dL (0.2-1.0); BUN - BLOOD UREA NITROGEN 12 mg/dL (6-20); CARBON DIOXIDE - CO2 32 mmol/L (21-32); CHLORIDE 102 mmol/L (101-111); CHOL/HDL RATIO 2.6 (<4.4); CHOLESTEROL 120 mg/dL; CREATININE 1.2 mg/dL (0.6-1.3); GFR - MDRD 53 (>89); GLUCOSE 112 mg/dL (74-104); HDL CHOLESTEROL 47 mg/dL; LDL CHOLESTEROL,CALCULATED 43 mg/dL; LDL/HDL RATIO 0.9 (<4.4); POTASSIUM 3.9 mmol/L (3.5-4.5); SODIUM 139 mmol/L (135-145); TOTAL PROTEIN 6.5 g/dL (6.4-8.9); TRIGLYCERIDES 152 mg/dL (48-352); VLDL CHOLESTEROL 30 mg/dL
[2023-07-06 20:27] LABS: ESTIMATED AVERAGE GLUCOSE 143 mg/dL (70-100); HEMOGLOBIN A1c% 6.6 % (4.27-6.07)
== END 2023-07-06 11:16 | disposition home or self-care (01) ==
LOC: LAB.N 11:15
PROVIDERS: ATTEND Physician Assistant Medical
DX: E11.59 Type 2 diabetes mellitus with other circulatory complications (principal)
CPT/HCPCS: 36415; 80053; 80061; 83036; 83721

== ENCOUNTER 2023-07-27 19:23 | Outpatient (CLI) | payer MEDICARE, OTHER | END 2023-07-27 19:24 | disposition home or self-care (01) | LOC: SC 19:23 | PROVIDERS: ATTEND Nurse Practitioner Family | DX: G47.33 Obstructive sleep apnea (adult) (pediatric) (principal) | CPT/HCPCS: 95810 ==

== ENCOUNTER 2023-08-17 08:15 | Outpatient (CLI) | payer MEDICARE, OTHER ==
--- NOTE | 2023-08-17 08:58 | Sleep Patient Instructions ---
Sleep Center Visit Summary - Patient Visit Information Reason for Visit: Sleep Study Followup - Patient Instructions Additional Instructions: You were here for follow up of sleep study to verify diagnosis which showed severe obstructive sleep apnea. You will be continued on BiPAP therapy with pressure at 22/10 cmH2O. An updated device to replace your broken BiPAP has been ordered. Please call our office to schedule a followup for compliance on new device. You should follow up with sleep care one month after getting your new BiPAP. You may contact us sooner for any questions or concerns. - Clinic Information Contact: [facility] [address] [place] [id number] [email or web address] T: [phone]
--- NOTE | 2023-08-17 09:00 | SLEEP CARE CONSULTATION ---
Information from patient questionnaire entered by Maribeth Brandon. I have reviewed and concur with the information entered by Maribeth Brandon. This document represents the service I personally performed and the decisions made by , Rosmery Dobson ARNP. History of Present Illness Service Date and Time: 08/17/2023 0815 Accompanied by: Spouse Initial [place] Sleepiness Scale score: 4 (06/08/23) Current [place] Sleepiness Scale score: 10 (08/17/23) Additional HPI information: ROOSEVELT CASSIDY returns for follow up and results of the recently performed polysomnography. The sleep study showed severe obstructive sleep apnea with an average AHI of 56.1 and paco oxygen saturation of 82%. The patient will continue with BiPAP therapy. BiPAP set at 22/10 cmH20 with 4 cmH2O pressure support is currently tolerated well with significant improvement of her sleep apnea. Patient does not drink alcohol. Patient was cautioned about risks of drowsy driving until sleepiness symptoms resolve. Patient denies drowsy driving. Sleep Study - Results Type of Sleep Study: Polysomnography (COMPLETED 07/27/2023) Prior sleep studies: Yes Polysomnography/Home Sleep Study results: IMPRESSION: The quality of the study is good. The patient had minimally reduced sleep efficiency. The sleep architecture was abnormal for sleep fragmentation and reduced amount of time spent in REM and slow wave sleep (N3). Respiratory monitoring showed severe obstructive sleep apnea-hypopnea (AHI = 56.1) associated with frequent arousals, oxyhemoglobin desaturation and mild hypoxia (paco oxygen saturation of 82%). The respiratory events occurred almost exclusively during supine sleep (supine AHI = 83.8; non- supine = 4.11). Snore was light to loud in intensity. There was no significant periodic leg movement of sleep. Cardiac rhythm was normal sinus rhythm without significant arrhythmia. No abnormal behavior (parasomnia) observed during the night. Allergies and Home Medications Known drug allergies: Yes (as listed) Drug allergies reviewed: Yes Home medication list reviewed: Yes (no changes) Allergy and home medication list: Allergies captopril [From Capoten] Allergy (Severe, Verified 08/16/23 12:25) Edema pentazocine HCl * [From Talwin Compound] Allergy (Severe, Verified 08/16/23 12:25) Hallucinations adhesive tape Allergy (Verified 08/16/23 12:25) Unknown atenolol Allergy (Verified 08/16/23 12:25) Unknown iodine Allergy (Verified 08/16/23 12:25) Rash pentazocine Allergy (Verified 08/16/23 12:25) Unknown Sulfa (Sulfonamide Antibiotics) Allergy (Verified 08/16/23 12:25) Unknown sulfamethoxazole [From Septra] Allergy (Verified 08/16/23 12:25) Unknown trimethoprim [From Septra] Allergy (Verified 08/16/23 12:25) Unknown ibuprofen Adverse Reaction (Intermediate, Verified 08/16/23 12:25) Emesis metformin Adverse Reaction (Verified 08/16/23 12:25) Nausea in large amounts Review of Systems Review of systems same as previous: Yes (NO CHANGE) Physical Exam Vital signs obtained and entered by: MARIBETH Licea MA Blood Pressure: 126/68 (LEFT ARM) Cuff size: regular Heart Rate: 77 O2 Saturation: 98 Height: 5 ft 4 in Weight: 227 lb 9.6 oz Body Mass Index: 39.0 BMI Classification: Obese Impression and Plan 1. Obstructive Sleep Apnea-Hypopnea Syndrome, severe. Her low oxygen saturation during study was 81%. On BIPAP therapy, the patient has better sleep quality and is more rested overall. Patient returns today after verifying sleep study showing severe obstructive sleep apnea with an average AHI of 56.1 and some mild hypoxemia. She definitely needs to continue with her BiPAP at current settings. She agreed and needs a new device since her BiPAP is not working. A DWO prescription will be made. Compliance guidelines for new device and follow up discussed. Patient's apnea severity and rationale for treatment to reduce apnea, improve sleep quality and reduce cardiovascular and cerebrovascular events was reviewed. I also reviewed the benefit of consistent device use of BIPAP for hypertension, diabetes, depression and anxiety. 2. Hypoxemia, mild, with a paco oxygen saturation of 81% and 63.2 minutes spent under 90%. Her baseline oxygen saturation was normal with an average oxygen saturation of 91%. 3. Obesity, unspecified. Currently patients BMI is 39. Obesity increases the risk of apnea, BIPAP pressure requirements and overall health risks especially cardiovascular and diabetes. Thus patient is advised to lose weight. * Continue BiPAP pressure at 22/10 cmH2O with 4 cmH2O pressure support * Update machine * Update supplies * Notify me if snoring with mask or feeling that the pressure is too much or too little * Attempt to lose weight * Call this office if any problems using BiPAP * Return for follow up one month after obtaining new device, or sooner if concerns arise Counseling Topics: Weight loss health impact Prescriptions: BiPAP, Device supplies Plan: compliance followup after obtaining new Bipap Visit Type: In Office Time Spent with Patient (minutes): 20 Provider Statement: I spent 100% of the Face to Face Visit with the patient with greater than 50% spent counseling the patient and coordination of care.
[2023-08-17 09:17] VITALS: BP 126/68; O2SAT 98
== END 2023-08-17 08:16 | disposition home or self-care (01) ==
LOC: SC 08:15
PROVIDERS: ATTEND Nurse Practitioner Family
DX: G47.33 Obstructive sleep apnea (adult) (pediatric) (principal); R09.02 Hypoxemia; E66.9 Obesity, unspecified; Z68.39 Body mass index [BMI] 39.0-39.9, adult
CPT/HCPCS: 99213; G0463; 99212

== ENCOUNTER 2023-10-11 09:36 | Outpatient (CLI) | payer MEDICARE, OTHER ==
[2023-10-11 12:39] LABS: CALCIUM 9.8 mg/dL (8.5-10.3); CREATININE 1.2 mg/dL (0.6-1.3); POTASSIUM 3.4 mmol/L (3.5-4.5)
[2023-10-11 12:45] LABS: ESTIMATED AVERAGE GLUCOSE 126 mg/dL (70-100)
== END 2023-10-11 09:37 | disposition home or self-care (01) ==
LOC: LAB.N 09:36
PROVIDERS: ATTEND Physician Assistant Medical
DX: E11.59 Type 2 diabetes mellitus with other circulatory complications (principal)
CPT/HCPCS: 36415; 80048; 83036

== ENCOUNTER 2024-04-13 12:34 | Outpatient (CLI) | payer MEDICARE, OTHER ==
[2024-04-13 18:15] LABS: ALBUMIN 3.9 g/dL (3.2-5.5); ALBUMIN/GLOBULIN RATIO 1.5 (1.0-2.2); ALKALINE PHOSPHATASE 56 IU/L (42-121); ALT ALANINE AMINOTRANSFERASE 12 IU/L (10-60); AST ASPARTATE AMINOTRANSFERASE 14 IU/L (10-42); BILIRUBIN,TOTAL 0.5 mg/dL (0.2-1.0); BUN - BLOOD UREA NITROGEN 21 mg/dL (6-20); CALCIUM 9.5 mg/dL (8.5-10.3); CARBON DIOXIDE - CO2 33 mmol/L (21-32); CHLORIDE 104 mmol/L (101-111); CHOL/HDL RATIO 2.5 (<4.4); CHOLESTEROL 121 mg/dL; CREATININE 1.6 mg/dL (0.6-1.3); GFR - MDRD 38 (>89); GLUCOSE 157 mg/dL (74-104); HDL CHOLESTEROL 49 mg/dL; LDL CHOLESTEROL,CALCULATED 44 mg/dL; LDL/HDL RATIO 0.9 (<4.4); POTASSIUM 4.7 mmol/L (3.5-4.5); SODIUM 142 mmol/L (135-145); TOTAL PROTEIN 6.5 g/dL (6.4-8.9); TRIGLYCERIDES 138 mg/dL (48-352); VLDL CHOLESTEROL 28 mg/dL
[2024-04-13 21:32] LABS: ESTIMATED AVERAGE GLUCOSE 134 mg/dL (70-100); HEMOGLOBIN A1c% 6.3 % (4.27-6.07)
== END 2024-04-13 12:35 | disposition home or self-care (01) ==
LOC: LAB.N 12:34
PROVIDERS: ATTEND Physician Assistant Medical
DX: E11.59 Type 2 diabetes mellitus with other circulatory complications (principal)
CPT/HCPCS: 36415; 80053; 80061; 83036; 83721

== ENCOUNTER 2024-06-27 14:14 | Outpatient (CLI) | payer MEDICARE, OTHER ==
--- NOTE | 2024-06-27 14:54 | Sleep Patient Instructions ---
Sleep Center Visit Summary - Patient Visit Information Reason for Visit: 11-month follow-up for PAP therapy - Patient Instructions Additional Instructions: You will continue with BIPAP therapy with pressure set at 22/10 cmH2O. A supply prescription will be updated with your DME supplier. We encourage you to continue to try to lose weight. Please follow up with the sleep care office in 1-2 months. - Clinic Information Contact: [facility] [address] [place] [address] [email or web address] T: [phone]
--- NOTE | 2024-06-27 15:02 | SLEEP CARE CONSULTATION ---
Information from patient questionnaire entered by Reagan Nevarez. I have reviewed and concur with the information entered by Reagan Nevarez. This document represents the service I personally performed and the decisions made by , Rosmery Dobson ARNP. History of Present Illness Service Date and Time: 06/27/2024 1414 Previous diagnosis: Severe, Obstructive Sleep Apnea-Hypopnea Syndrome AHI: 56.1 Reason for follow up: other (11-Month F/U - Not sure if she got a new machine) Accompanied by: Daughter Equipment type: BiPAP (ResMed AirCurve 10, s/u 01/2018) Equipment obtained from: [employer] (getting supplies) Mask style: Full face Backup mask available: No Last cushion change: about 1 month Prior sleep studies: Yes Type of Sleep Study: Polysomnography (COMPLETED 07/27/2023) HPI additional information: ROOSEVELT CASSIDY was diagnosed to have severe, AHI 56.1, obstructive sleep apnea- hypopnea syndrome and returned today for BIPAP therapy 11 month follow-up. Sleep Study - Results Type of Sleep Study: Polysomnography (COMPLETED 07/27/2023) Prior sleep studies: Yes CPAP Compliance Data - Data Reviewed with Patient Average duration of nightly device use: 8 h 34 min Compliance rate %: 85 (162/180 days used) Current pressure setting (cmH2O): 22/10 Average residual AHI: 9.1 (unknown 3.7) Central apnea: 3.8 Obstructive apnea: 0.6 Hypopnea: 0.9 Average large leak: 21.9 L/min Subjective Patient concerns: reports: mask leak noise. denies: aerophagia, mask discomfort, air blowing in eyes, condensation in mask/hose, nasal congestion, dry mouth, nose, throat, epistaxis Observed to snore while using device: No Current pressure setting perceived as: comfortable On therapy, patient: reports: sleeping better, awakening more refreshed, being more awake and alert during the day, more rested overall. denies: drowsiness while driving Initial [place] Sleepiness Scale score: 4 (06/08/23) Current [place] Sleepiness Scale score: 9 (06/27/2024) Allergies and Home Medications Known drug allergies: Yes (as listed) Drug allergies reviewed: Yes Home medication list reviewed: Yes (no changes) Allergy and home medication list: Allergies captopril [From Capoten] Allergy (Severe, Verified 05/08/24 11:43) Edema pentazocine HCl * [From Talwin Compound] Allergy (Severe, Verified 05/08/24 11:43) Hallucinations adhesive tape Allergy (Verified 05/08/24 11:43) Unknown atenolol Allergy (Verified 05/08/24 11:43) Unknown iodine Allergy (Verified 05/08/24 11:43) Rash pentazocine Allergy (Verified 05/08/24 11:43) Unknown Sulfa (Sulfonamide Antibiotics) Allergy (Verified 05/08/24 11:43) Unknown sulfamethoxazole [From Septra] Allergy (Verified 05/08/24 11:43) Unknown trimethoprim [From Septra] Allergy (Verified 05/08/24 11:43) Unknown ibuprofen Adverse Reaction (Intermediate, Verified 05/08/24 11:43) Emesis metformin Adverse Reaction (Verified 05/08/24 11:43) Nausea in large amounts Review of Systems Review of systems same as previous: Yes (no changes) Physical Exam Vital signs obtained and entered by: Rosmery Berumen NP Blood Pressure: 132/65 Cuff size: long (right arm) Heart Rate: 51 O2 Saturation: 98 Height: 5 ft 4 in Weight: 216 lb 9.6 oz Body Mass Index: 37.1 BMI Classification: Obese Impression and Plan 1. Obstructive Sleep Apnea-Hypopnea Syndrome, severe, with good treatment compliance and fair apnea control with elevated residual AHI. On BIPAP therapy, the patient has better sleep quality and is more rested overall. She has significant improvement of her sleep apnea however her residual AHI is a little elevated. She has very large average leaks with elevated central and unknown events. The obstructive and hypopneic indexes are well-controlled. She gets a lot of mask leak noises that keep her and her up. She would like to try a different style of mask and I think this is prudent. I will write for a mask refitting to try a nasal cushion or nasal pillows cushion mask. She may have to use a chinstrap when using this style of mask if her mouth comes open. I will have her get a new mask and have her follow-up in 1 to 2 months so that we can check that everything is going better and her residual events have improved. She voiced understanding and agreement with this plan of care. Patient's apnea severity and rationale for treatment to reduce apnea, improve sleep quality and reduce cardiovascular and cerebrovascular events was reviewed. I also reviewed the benefit of consistent device use of BIPAP for hypertension, diabetes, de pression/anxiety. 2. Obesity, unspecified. Currently patients BMI is 37.1. Obesity increases the risk of apnea, BIPAP pressure requirements and overall health risks especially cardiovascular and diabetes. Thus patient is advised to lose weight. * Continue BIPAP pressure at 22/10 cmH2O with 4 cmH2O pressure support * Update supply prescription * Mask refitting for nasal or nasal pillow mask * Chinstrap, if needed * Notify me if snoring with mask or feeling that the pressure is too much or too little * Attempt to lose weight * Call this office if any problems using CPAP * Return for follow up in 1-2 months, or sooner if concerns arise Counseling Topics: Spare mask, Weight loss health impact Prescriptions: Device supplies (with mask refitting) Follow up with Sleep Care in: 1 year Visit Type: In Office Time Spent with Patient (minutes): 33 Provider Statement: I spent 100% of the Face to Face Visit with the patient with greater than 50% spent counseling the patient and coordination of care.
[2024-06-27 15:04] VITALS: BP 132/65; O2SAT 98
== END 2024-06-27 14:15 | disposition home or self-care (01) ==
LOC: SC 14:14
PROVIDERS: ATTEND Nurse Practitioner Family
DX: G47.33 Obstructive sleep apnea (adult) (pediatric) (principal); E66.9 Obesity, unspecified; Z68.37 Body mass index [BMI] 37.0-37.9, adult
CPT/HCPCS: 99213; G0463; 99212

== ENCOUNTER 2024-07-13 11:32 | Outpatient (CLI) | payer MEDICARE, OTHER ==
[2024-07-13 18:23] LABS: ALBUMIN 3.9 g/dL (3.2-5.5); ALBUMIN/GLOBULIN RATIO 1.6 (1.0-2.2); BILIRUBIN,TOTAL 0.5 mg/dL (0.2-1.0); CALCIUM 9.6 mg/dL (8.5-10.3); CREATININE 1.3 mg/dL (0.6-1.3); POTASSIUM 4.1 mmol/L (3.5-4.5); TOTAL PROTEIN 6.4 g/dL (6.4-8.9)
[2024-07-13 21:00] LABS: ESTIMATED AVERAGE GLUCOSE 134 mg/dL (70-100); HEMOGLOBIN A1c% 6.3 % (4.27-6.07)
== END 2024-07-13 11:33 | disposition home or self-care (01) ==
LOC: LAB.N 11:32
PROVIDERS: ATTEND Physician Assistant Medical
DX: E11.22 Type 2 diabetes mellitus with diabetic chronic kidney disease (principal); N18.9 Chronic kidney disease, unspecified; E11.59 Type 2 diabetes mellitus with other circulatory complications
CPT/HCPCS: 36415; 80053; 83036